=== PATIENT | male | born 1955 | race Caucasian/White ===

== ENCOUNTER → 2016-02-27 | Outpatient (CLI) | payer OTHER ==
[~2016-02-27] VITALS: Ht 167.6 cm; Wt 95.3 kg
[~2016-02-27] MED LIST: ASPI1TAB PO; CALC500T49 PO; CLAR5TAB PO; CLOB05OI EXT; CO Q1CAP PO; FISH5CAP PO; FLUT1SPR2; GLUC1CAP10 PO; IRBE300T10 PO; PANT40TA2 PO; PROPOFOL 200 MG/20 ML VIAL As Ordered ONE; SAW1CAP2 PO; SING10TA32 PO; VITA1TAB23 PO; glucosamine OR
[2016-02-27] MEDS: NS 1,000 ML IV SCH ×2 (09:15→09:20)
--- NOTE | 2016-02-27 10:31 | ROOR ---
Patient Name: Markie Fink Procedure Date: 02/27/2016 10:06 AM Date of : 1955 Age: 61 Room: [facility] Gender: Male Note Status: Finalized Procedure: Colonoscopy to Cecum Indications: High risk colon cancer surveillance: Personal history of colonic polyps Providers: Max Walter MD Referring MD: Michael Lugo NP Requesting Provider: Medicines: Monitored Anesthesia Care Complications: No immediate complications. Procedure: Pre-Anesthesia Assessment: - The heart rate, respiratory rate, oxygen saturations, blood pressure, adequacy of pulmonary ventilation, and response to care were monitored throughout the procedure. The Colonoscope was introduced through the anus and advanced to the cecum, identified by appendiceal orifice and ileocecal valve. The colonoscopy was performed without difficulty. The patient tolerated the procedure well. The quality of the bowel preparation was good. Findings: The perianal and digital rectal examinations were normal. Non-bleeding internal hemorrhoids were found during retroflexion. The hemorrhoids were small and Grade I (internal hemorrhoids that do not prolapse). The exam was otherwise without abnormality on direct and retroflexion views. Impression: - Non-bleeding internal hemorrhoids. - The examination was otherwise normal on direct and retroflexion views. - No specimens collected. - The exam was otherwise normal to the cecum. Recommendation: - Patient has a contact number available for emergencies. The signs and symptoms of potential delayed complications were discussed with the patient. Return to normal activities tomorrow. Written discharge instructions were provided to the patient. - High fiber diet. - Discharge patient to home. - Continue present medications. - Repeat colonoscopy in 5 years for surveillance. - Return to referring physician. - The findings and recommendations were discussed with the patient's family. Max Walter MD Max Walter MD 02/27/2016 10:30:36 AM This report has been signed electronically. Number of Addenda: 0 Note Initiated On: 02/27/2016 10:06 AM Estimated Blood Loss: Estimated blood loss: none.
[2016-02-27 10:52] VITALS: BP 10/84
== END ==
LOC: M OPP 08:50
PROVIDERS: ATTEND Internal Medicine Gastroenterology
DX: Z12.11 Encounter for screening for malignant neoplasm of colon (principal); Z86.010 Personal history of colon polyps; Z80.0 Family history of malignant neoplasm of digestive organs; K64.0 First degree hemorrhoids; K21.9 Gastro-esophageal reflux disease without esophagitis; I10 Essential (primary) hypertension; N18.9 Chronic kidney disease, unspecified; Z79.82 Long term (current) use of aspirin; Z79.899 Other long term (current) drug therapy; J30.2 Other seasonal allergic rhinitis; J30.89 Other allergic rhinitis

== ENCOUNTER → 2016-05-25 | Outpatient (CLI) | payer OTHER ==
[~2016-05-25] MED LIST changes: -PROPOFOL 200 MG/20 ML VIAL As Ordered ONE
[2016-05-25 16:55] LABS: ALBUMIN 4.1 GM/DL (3.2-5.2); ALBUMIN/GLOBULIN RATIO 1.41 (1.00-1.93); ALKALINE PHOSPHATASE 74 U/L (45-117); ALT/SGPT 25 U/L (12-78); ANION GAP 1 MEQ/L (8-16); AST/SGOT 29 U/L (15-37); BILIRUBIN,TOTAL 0.9 MG/DL (0.2-1.0); BLOOD UREA NITROGEN 16 MG/DL (7-18); CALCIUM LEVEL 8.9 MG/DL (8.8-10.2); CARBON DIOXIDE LEVEL 34 MEQ/L (21-32); CHLORIDE LEVEL 103 MEQ/L (98-107); CHOLESTEROL LEVEL 174 MG/DL (<200); CREATININE FOR GFR 1.04 MG/DL (0.70-1.30); GLOMERULAR FILTRATION RATE > 60.0 (>49); GLUCOSE, FASTING 92 MG/DL (80-110); POTASSIUM SERUM 4.8 MEQ/L (3.5-5.1); SODIUM LEVEL 138 MEQ/L (136-145); TRIGLYCERIDES LEVEL 200 MG/DL (<150)
[2016-05-25 17:40] LABS: BASO % 0.8 % (0.0-1.0); EOS # 0.1 K/mm3 (0.0-0.50); EOS % 2.2 % (0.0-3.0); LARGE UNSTAINED CELL # 0.1 K/mm3 (0.0-0.4); LARGE UNSTAINED CELL % 1.6 % (0.0-4.0); LYMPH % 16.9 % (24.0-44.0); MEAN CORPUSCULAR HEMOGLOBIN 30.9 pg (27.0-33.0); MEAN CORPUSCULAR HGB CONC 34.1 g/dl (32.0-36.5); MEAN CORPUSCULAR VOLUME 90.3 fl (80.0-96.0); MONO # 0.4 K/mm3 (0.0-0.8); MONO % 6.4 % (0.0-5.0); NEUTROPHILS # 4.3 K/mm3 (1.8-7.7); NEUTROPHILS % 72.1 % (36.0-66.0); PLATELET COUNT, AUTOMATED 173 k/mm3 (150-450); RED CELL DISTRIBUTION WIDTH 13.5 % (11.5-14.5)
== END ==
LOC: M WUC 11:16
PROVIDERS: ATTEND Nurse Practitioner Family
DX: D45 Polycythemia vera (principal); E55.9 Vitamin D deficiency, unspecified

== ENCOUNTER → 2016-11-22 | Outpatient (CLI) | payer OTHER ==
[~2016-11-22] MED LIST changes: +CO Q100C PO; -CO Q1CAP PO
[2016-11-22 10:10] LABS: BASO % 0.5 % (0.0-1.0); EOS # 0.2 10^3/uL (0.0-0.50); EOS % 3.4 % (0.0-3.0); IMMATURE GRANULOCYTE % 0.5 % (0-0); LYMPH % 18.5 % (24.0-44.0); MEAN CORPUSCULAR HGB CONC 34.9 g/dl (32.0-36.5); MEAN CORPUSCULAR VOLUME 85.9 fl (80.0-96.0); MONO # 0.4 10^3/uL (0.0-0.8); MONO % 7.1 % (0.0-5.0); NEUTROPHILS # 3.9 10^3/uL (1.8-7.7); PLATELET COUNT, AUTOMATED 161 10^3/uL (150-450); RED CELL DISTRIBUTION WIDTH 13.2 % (11.5-14.5); WHITE BLOOD COUNT 5.5 10^3/uL (4.0-10.0)
[2016-11-22 10:25] LABS: ALBUMIN 3.9 GM/DL (3.2-5.2); ALBUMIN/GLOBULIN RATIO 1.39 (1.00-1.93); ALKALINE PHOSPHATASE 73 U/L (45-117); ALT/SGPT 26 U/L (12-78); ANION GAP 9 MEQ/L (8-16); AST/SGOT 21 U/L (15-37); BILIRUBIN,TOTAL 0.8 MG/DL (0.2-1.0); BLOOD UREA NITROGEN 22 MG/DL (7-18); CALCIUM LEVEL 8.3 MG/DL (8.8-10.2); CARBON DIOXIDE LEVEL 28 MEQ/L (21-32); CHLORIDE LEVEL 105 MEQ/L (98-107); CREATININE FOR GFR 0.93 MG/DL (0.70-1.30); GLOMERULAR FILTRATION RATE > 60.0 (>49); GLUCOSE, FASTING 95 MG/DL (80-110); POTASSIUM SERUM 4.2 MEQ/L (3.5-5.1); SODIUM LEVEL 142 MEQ/L (136-145); TOTAL PROTEIN 6.7 GM/DL (6.4-8.2)
[2016-11-23 14:15] LABS: PSA TOTAL 1.1 ng/mL (0.0-4.0)
== END ==
LOC: M WUC 08:29
PROVIDERS: ATTEND Nurse Practitioner Family
DX: D45 Polycythemia vera (principal); Z12.5 Encounter for screening for malignant neoplasm of prostate; E55.9 Vitamin D deficiency, unspecified; I10 Essential (primary) hypertension

== ENCOUNTER → 2017-05-24 | Outpatient (CLI) | payer OTHER ==
[2017-05-24 09:11] LABS: BASO % 0.4 % (0.0-1.0); EOS # 0.1 10^3/uL (0.0-0.50); EOS % 2.5 % (0.0-3.0); HEMATOCRIT 46.3 % (42.0-52.0); HEMOGLOBIN 16.3 g/dl (13.5-17.5); IMMATURE GRANULOCYTE % 0.5 % (0-3.0); LYMPH % 17.9 % (24.0-44.0); MEAN CORPUSCULAR HGB CONC 35.2 g/dl (32.0-36.5); MEAN CORPUSCULAR VOLUME 85.3 fl (80.0-96.0); MONO # 0.5 10^3/uL (0.0-0.8); MONO % 9.2 % (0.0-5.0); NEUTROPHILS # 3.9 10^3/uL (1.8-7.7); NEUTROPHILS % 69.5 % (36.0-66.0); PLATELET COUNT, AUTOMATED 155 10^3/uL (150-450); RED BLOOD COUNT 5.43 10^6/uL (4.30-6.10); RED CELL DISTRIBUTION WIDTH 12.8 % (11.5-14.5); WHITE BLOOD COUNT 5.6 10^3/uL (4.0-10.0)
[2017-05-24 09:36] LABS: ALBUMIN 3.8 GM/DL (3.2-5.2); ALBUMIN/GLOBULIN RATIO 1.27 (1.00-1.93); ALKALINE PHOSPHATASE 67 U/L (45-117); ALT/SGPT 23 U/L (12-78); ANION GAP 4 MEQ/L (8-16); AST/SGOT 29 U/L (7-37); BILIRUBIN,TOTAL 1.2 MG/DL (0.2-1.0); BLOOD UREA NITROGEN 18 MG/DL (7-18); CALCIUM LEVEL 8.5 MG/DL (8.8-10.2); CARBON DIOXIDE LEVEL 33 MEQ/L (21-32); CHLORIDE LEVEL 104 MEQ/L (98-107); CREATININE FOR GFR 1.06 MG/DL (0.70-1.30); GLOMERULAR FILTRATION RATE > 60.0 (>49); GLUCOSE, FASTING 92 MG/DL (70-100); POTASSIUM SERUM 4.8 MEQ/L (3.5-5.1); SODIUM LEVEL 141 MEQ/L (136-145); TOTAL PROTEIN 6.8 GM/DL (6.4-8.2)
[2017-05-24 10:06] LABS: TOTAL 25(OH) VITAMIN D 30.6 NG/ML (30.0-100.0)
== END ==
LOC: M WUC 08:25
DX: E55.9 Vitamin D deficiency, unspecified (principal); I10 Essential (primary) hypertension

== ENCOUNTER → 2017-11-26 | Outpatient (CLI) | payer OTHER ==
[2017-11-26 13:18] LABS: BASO % 0.5 % (0.0-1.0); EOS # 0.2 10^3/uL (0.0-0.50); EOS % 3.6 % (0.0-3.0); HEMATOCRIT 49.6 % (42.0-52.0); HEMOGLOBIN 17.1 g/dl (13.5-17.5); IMMATURE GRANULOCYTE % 0.7 % (0-3.0); LYMPH # 1.1 10^3/uL (1.5-4.5); LYMPH % 19.9 % (24.0-44.0); MEAN CORPUSCULAR HEMOGLOBIN 30.1 pg (27.0-33.0); MEAN CORPUSCULAR HGB CONC 34.5 g/dl (32.0-36.5); MEAN CORPUSCULAR VOLUME 87.3 fl (80.0-96.0); MONO # 0.4 10^3/uL (0.0-0.8); MONO % 7.7 % (0.0-5.0); NEUTROPHILS # 3.8 10^3/uL (1.8-7.7); NEUTROPHILS % 67.6 % (36.0-66.0); PLATELET COUNT, AUTOMATED 165 10^3/uL (150-450); RED BLOOD COUNT 5.68 10^6/uL (4.30-6.10); RED CELL DISTRIBUTION WIDTH 13.2 % (11.5-14.5); WHITE BLOOD COUNT 5.6 10^3/uL (4.0-10.0)
[2017-11-26 13:50] LABS: ALBUMIN 3.9 GM/DL (3.2-5.2); ALBUMIN/GLOBULIN RATIO 1.34 (1.00-1.93); ALKALINE PHOSPHATASE 70 U/L (45-117); ALT/SGPT 25 U/L (12-78); ANION GAP 7 MEQ/L (8-16); AST/SGOT 22 U/L (7-37); BLOOD UREA NITROGEN 18 MG/DL (7-18); CALCIUM LEVEL 8.8 MG/DL (8.8-10.2); CARBON DIOXIDE LEVEL 31 MEQ/L (21-32); CHLORIDE LEVEL 103 MEQ/L (98-107); CREATININE FOR GFR 1.09 MG/DL (0.70-1.30); GLOMERULAR FILTRATION RATE > 60.0 (>49); GLUCOSE, FASTING 78 MG/DL (70-100); POTASSIUM SERUM 5.2 MEQ/L (3.5-5.1); SODIUM LEVEL 141 MEQ/L (136-145); TOTAL PROTEIN 6.8 GM/DL (6.4-8.2)
[2017-11-29 00:24] LABS: PSA TOTAL 1.1 ng/mL (0.0-4.0)
== END ==
LOC: M WUC 08:38
DX: I10 Essential (primary) hypertension (principal); Z12.5 Encounter for screening for malignant neoplasm of prostate; E55.9 Vitamin D deficiency, unspecified; M54.2 Cervicalgia

== ENCOUNTER → 2018-03-12 | Outpatient (CLI) | payer OTHER ==
[~2018-03-12] MED LIST changes: -PANT40TA2 PO; +PANT40TA3 PO
--- NOTE | 2018-03-12 23:24 | REP ---
Clinical: Right lower extremity palpable mass. Technique: Real time patel scale and color evaluation using linear high frequency transducer. Findings: Directed ultrasound examination at the right groin overlying the palpable mass demonstrates an enlarged vascular solid mass measuring 3.5 x 2.4 x 4.2 cm and likely represents enlarged pathologic lymph node. No further abnormality identified. Impression: Mass lesion likely represents enlarged pathologic lymph node. Correlation and follow up is recommended and based on symptoms and history, biopsy may be warranted. Electronically Signed by Dusty Urias MD 03/12/2018 11:15 P
== END ==
LOC: M RAD 13:38
PROVIDERS: ATTEND Physician Assistant
DX: R19.09 Other intra-abdominal and pelvic swelling, mass and lump (principal); R22.40 Localized swelling, mass and lump, unspecified lower limb

== ENCOUNTER → 2018-03-14 | Outpatient (CLI) | payer OTHER ==
[2018-03-14 10:04] LABS: BASO % 0.6 % (0.0-1.0); EOS # 0.1 10^3/uL (0.0-0.50); EOS % 1.9 % (0.0-3.0); HEMATOCRIT 53.7 % (42.0-52.0); HEMOGLOBIN 18.6 g/dl (13.5-17.5); LYMPH # 1.3 10^3/uL (1.5-4.5); LYMPH % 18.7 % (24.0-44.0); MEAN CORPUSCULAR HEMOGLOBIN 30.1 pg (27.0-33.0); MEAN CORPUSCULAR HGB CONC 34.6 g/dl (32.0-36.5); MONO # 0.5 10^3/uL (0.0-0.8); MONO % 7.2 % (0.0-5.0); NEUTROPHILS % 71.2 % (36.0-66.0); PLATELET COUNT, AUTOMATED 190 10^3/uL (150-450); RED BLOOD COUNT 6.17 10^6/uL (4.30-6.10)
[2018-03-14 10:30] LABS: ALBUMIN 4.3 GM/DL (3.2-5.2); ALT/SGPT 23 U/L (12-78); BILIRUBIN,TOTAL 1.4 MG/DL (0.2-1.0); BLOOD UREA NITROGEN 20 MG/DL (7-18); CALCIUM LEVEL 9.6 MG/DL (8.8-10.2); CARBON DIOXIDE LEVEL 32 MEQ/L (21-32); CHLORIDE LEVEL 101 MEQ/L (98-107); CREATININE FOR GFR 1.17 MG/DL (0.70-1.30); GLOMERULAR FILTRATION RATE > 60.0 (>49); GLUCOSE, FASTING 97 MG/DL (70-100); POTASSIUM SERUM 5.3 MEQ/L (3.5-5.1); SODIUM LEVEL 138 MEQ/L (136-145); TOTAL PROTEIN 7.3 GM/DL (6.4-8.2)
== END ==
LOC: M LAB 09:30
PROVIDERS: ATTEND Nurse Practitioner Family
DX: I10 Essential (primary) hypertension (principal)

== ENCOUNTER → 2018-03-26 | Outpatient (CLI) | payer OTHER ==
[~2018-03-26] MED LIST changes: +GASTROGRAFIN SOLUTION 30ML (Q9963) As Ordered ONE; +ISOVUE-370 76% 100ML VIAL (Q9967) As Ordered ONE
--- NOTE | 2018-03-26 21:05 | REP ---
Clinical: History of neoplasm. Technique: Axial contrast enhanced images from the lung bases to the pubic symphysis using oral (per protocol) and 100 ml Isovue 370 intravenous contrast material with delayed images of the abdomen as well as coronal and sagittal re-formations. Comparison: 02/16/2015. Findings: Lung bases demonstrate left lower lobe and right middle lobe fibroatelectatic change. Visualized portions of the heart and pericardium appear normal. Liver includes stable 3.2 cm left lobe cyst and few scattered subcentimeter cysts. Spleen is mildly prominent but without focal splenic lesion identified. Pancreas, gallbladder, bilateral adrenal glands and kidneys are normal. The enteric system is without obstruction or acute inflammatory process. Pelvis demonstrates normal bladder and moderately enlarged prostate gland measuring approximately 4.6 cm maximal diameter with parenchymal calcifications. No ascites. No adenopathy. No free air. Abdominal aorta without aneurysm or dissection. Musculoskeletal structures demonstrate degenerative changes without focal osseous abnormality. Impression: 1. Stable hepatic cysts. 2. Enlarged prostate gland. 3. No further acute abdominopelvic pathology appreciated. Electronically Signed by Dusty Urias MD 03/26/2018 08:56 P
== END ==
LOC: M RAD 14:10
PROVIDERS: ATTEND Internal Medicine Gastroenterology
DX: D48.7 Neoplasm of uncertain behavior of other specified sites (principal); K76.89 Other specified diseases of liver; N40.0 Benign prostatic hyperplasia without lower urinary tract symptoms
CPT/HCPCS: 74177; Q9963; Q9967

== ENCOUNTER → 2018-04-14 | Outpatient (CLI) | payer OTHER ==
[~2018-04-14] MED LIST changes: -GASTROGRAFIN SOLUTION 30ML (Q9963) As Ordered ONE; -ISOVUE-370 76% 100ML VIAL (Q9967) As Ordered ONE; +LIDOCAINE 1% MDV 20ML VIAL As Ordered ONE
--- NOTE | 2018-04-14 14:42 | REP ---
Ultrasound-guided core needle biopsy right groin mass. History: Enlarged right groin lymph node versus other mass. Comparison CT study March 26, 2018 and February 16, 2015 comparison sonography March 12, 2018. Procedure: The patient and his significant other were interviewed and informed consent was obtained. The patient was scanned with ultrasound preliminarily and the right groin was marked at the site of the oval-shaped mass. Its current dimensions are 41 x 38 x 25 mm, previously by sonography 42 x 35 x 24 mm. It is felt to be essentially unchanged over that short interval. The patient safety time-out was articulated and agreed upon. The area was prepped and draped in the usual fashion. A total of nine core specimens were retrieved using a 17/18 gauge Passpack coaxial needle biopsy device. These were split five in Cytolyt and four in the RPMI solution and transmitted to the lab for pathologic analysis. Biopsies were retrieved under direct sonographic visualization. No complication was noted. There is no evidence of hematoma on postprocedure scanning. Impression: Ultrasound guided needle biopsy procedure right groin mass. Electronically Signed by Uzair Snow MD 04/14/2018 02:44 P
== END ==
LOC: M RADPRO 09:38
PROVIDERS: ATTEND Surgery
DX: C85.15 Unspecified B-cell lymphoma, lymph nodes of inguinal region and lower limb (principal); Z79.82 Long term (current) use of aspirin; Z79.899 Other long term (current) drug therapy

== ENCOUNTER → 2018-04-25 | Outpatient (CLI) | payer OTHER ==
[~2018-04-25] MED LIST changes: +ATIV1TAB7 PO; +EQL50TAB4 PO; +FLUT05CR TOP; +ISOVUE-370 76% 100ML VIAL (Q9967) As Ordered ONE; -LIDOCAINE 1% MDV 20ML VIAL As Ordered ONE; +MAGN400C2 PO; +MULTCAP PO
--- NOTE | 2018-04-25 16:31 | REP ---
Soft-tissue neck CT study with IV contrast: History: Diffuse large B-cell lymphoma. Staging. No comparison study. CT contrast dose: 75 ml of intravenous Isovue 370. CT findings: Visualized paranasal sinuses are clear. No intracranial abnormality is seen. No intraorbital abnormality is noted. Parotid glands and submandibular glands are normal and symmetric. Thyroid lobes are homogeneous and symmetric. The lung apices are clear. No bony destructive lesion. There is no visible neck mass or adenopathy. There are a few tiny cervical lymph nodes. No vascular abnormality is observed. Glottic and subglottic airway is unremarkable. Normal epiglottis is seen. No tonsillar or peritonsillar lesion is appreciated. Floor of mouth structures appear unremarkable and symmetric. Impression: No neck mass or adenopathy seen. Electronically Signed by Uzair Snow MD 04/25/2018 06:55 P
--- NOTE | 2018-04-25 18:03 | REP ---
CT chest with IV contrast: History: Diffuse large B-cell lymphoma. Evaluate for staging. No comparison chest CT. Comparison chest x-ray is from January 06, 2015. CT contrast dose: 75 ml of intravenous Isovue 370. CT findings: There is mild adenopathy in the left axilla. The largest lymph node here measures 2.5 x 2.0 x 1.9 cm. No evidence of hilar or mediastinal mass or adenopathy is observed. There is left anterior descending coronary artery vascular calcification. No other vascular abnormality is observed. No pleural or pericardial effusion is seen. No adrenal lesion is observed. There are hepatic cysts. Right hemidiaphragm is somewhat elevated. There are degenerative disc changes in multiple levels of the thoracic spine. No bony destructive lesion is appreciated. There are old healed rib fractures on the left. Impression: There is one enlarged left axillary lymph node and two or three other normal-sized left axillary lymph nodes consistent with mild adenopathy. Old healed rib fractures. Otherwise no acute disease. Electronically Signed by Uzair Snow MD 04/25/2018 07:05 P
== END ==
LOC: M RAD 14:21
PROVIDERS: ATTEND Internal Medicine Medical Oncology
DX: C83.30 Diffuse large B-cell lymphoma, unspecified site (principal)
CPT/HCPCS: 70491; 71260; Q9967

== ENCOUNTER 2018-07-16 15:43 | Inpatient (IN) | payer OTHER ==
[~2018-07-16] VITALS: Ht 167.6 cm; Wt 97.5 kg
[~2018-07-16 15:43] MED LIST changes: -ASPI1TAB PO; +ASPI81TA26 PO; -CLOB05OI EXT; +CLOB05OI TOP; -EQL50TAB4 PO; -ISOVUE-370 76% 100ML VIAL (Q9967) As Ordered ONE; +ZINC1TAB2 PO
[2018-07-16] MEDS ORDERED: VALT500T PO (16:04)
[2018-07-16] MEDS ORDERED: ONDA4TAB6 PO (16:04)
[2018-07-16] MEDS ORDERED: PROC5TA PO (16:04)
[2018-07-16] MEDS ORDERED: PANT40TA3 PO (16:04)
[2018-07-16] MEDS ORDERED: CALC-132 PO (16:04)
[2018-07-16] MEDS ORDERED: CETI10CA2 PO (16:04)
[2018-07-16] MEDS ORDERED: CVS1CAP2 PO (16:04)
[2018-07-16] MEDS ORDERED: NS 1,000 ML IV ONE (17:00)
[2018-07-16] MEDS ORDERED: ACETAMINOPHEN TAB 650MG DOSE (2X325MG) PO ONE (17:15)
[2018-07-16 17:30] LABS: BASO % 2.3 % (0.0-1.0); EOS % 4.5 % (0.0-3.0); HEMATOCRIT 34.9 % (42.0-52.0); HEMOGLOBIN 12.3 g/dl (13.5-17.5); LYMPH % 29.5 % (24.0-44.0); MEAN CORPUSCULAR HEMOGLOBIN 31.1 pg (27.0-33.0); MEAN CORPUSCULAR HGB CONC 35.2 g/dl (32.0-36.5); MEAN CORPUSCULAR VOLUME 88.1 fl (80.0-96.0); MONO # 0.2 10^3/uL (0.0-0.8); MONO % 36.4 % (0.0-5.0); PLATELET COUNT, AUTOMATED 111 10^3/uL (150-450); RED BLOOD COUNT 3.96 10^6/uL (4.30-6.10)
[2018-07-16 17:34] LABS: LYMPH # 0.1 10^3/uL (1.5-4.5); NEUTROPHILS # 0.1 10^3/uL (1.8-7.7); WHITE BLOOD COUNT 0.4 10^3/uL (4.0-10.0)
--- NOTE | 2018-07-16 17:45 | REP ---
Clinical: Cough. Comparison: 01/06/2015 Findings: Mediastinum and cardiac silhouette are normal. Subtle left lower lobe infiltrate is appreciated. No effusion. No pneumothorax. Skeletal structures intact. Impression: Subtle left lower lobe infiltrate. Electronically Signed by Dusty Urias MD 07/16/2018 05:36 P
[2018-07-16 17:59] LABS: ALBUMIN 3.1 GM/DL (3.2-5.2); ALT/SGPT 31 U/L (12-78); BILIRUBIN,DIRECT 0.5 MG/DL (0.0-0.2); BILIRUBIN,TOTAL 1.7 MG/DL (0.2-1.0); BLOOD UREA NITROGEN 16 MG/DL (7-18); CALCIUM LEVEL 7.7 MG/DL (8.8-10.2); CARBON DIOXIDE LEVEL 31 MEQ/L (21-32); CHLORIDE LEVEL 97 MEQ/L (98-107); CK-MB VALUE MASS < 1.0 NG/ML (<3.6); CPK CREATINE PHOSPHOKINASE 48 U/L (39-308); GLOMERULAR FILTRATION RATE > 60.0 (>49); GLUCOSE, FASTING 94 MG/DL (70-100); LIPASE 89 U/L (73-393); MB/CK RELATIVE INDEX 2.08 (< OR =4); POTASSIUM SERUM 4.5 MEQ/L (3.5-5.1); SODIUM LEVEL 135 MEQ/L (136-145); TROPONIN I < 0.02 NG/ML (< 0.10)
[2018-07-16] MEDS ORDERED: PIPERACILLIN/TAZOBACTAM SOD 3.375 GM in D5W MINI-BAG PLUS 50 ML IV ONE (19:00)
[2018-07-16] MEDS ORDERED: ONDA8TAB8 PO (19:02)
[2018-07-16] MEDS ORDERED: VANCOMYCIN HCL 1,000 MG, VIAL MATE ADAPTER 1 EACH in D5W 250 ML IV ONE (20:00)
[2018-07-16] MEDS ORDERED: CLOBETASOL PROP 0.05% OINT 30 GM TOP PRN (20:00)
[2018-07-16] MEDS ORDERED: ONDANSETRON 4 MG ORAL DISINTEGRATING TAB (Q0162 PER 1MG) PO PRN (20:00)
[2018-07-16] MEDS ORDERED: ENOXAPARIN 40 MG/0.4 ML SYRINGE (J1650) SC SCH (20:00)
[2018-07-16] MEDS ORDERED: ISOVUE-370 76% 100ML VIAL (Q9967) As Ordered ONE (20:51)
--- NOTE | 2018-07-16 21:10 | HPEPDOC ---
General Date of Admission 07/16/2018 Date of Service: July 16, 2018 Primary Care Physician: Michael Lugo [facility] Other Providers Sueding Machine Tender: Michael Corado MD - Medicine Oncology Chief Complaint The patient is a 63-year-old male admitted with a reason for visit of Breathing Diff, Urinary Retention. Source: Patient, Family, Old records Exam Limitations: No limitations Timing/Duration: Week(s), Getting worse Associated Symptoms: Chest Pain, Chills, Shortness of breath History of Present Illness Mr. Fink is a 63-year-old male who presents to [facility] Emergency Department with worsening shortness of breath. Patient states that he has a diagnosis of lymphoma and 7 weeks ago started chemotherapy, including R-CHOP therapy at the [facility] under the care of lithograph operator Dr. Corado. 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 He would find that he was unable to catch his breath. Prior to 5 weeks ago patient was able to complete all ADLs and actually would walk on a treadmill at an incline for 3 miles at 4 miles/hour. He is currently unable to do so. He does not wear oxygen or use assist devices. Associated with the shortness of breath with exertion patient describes an anterior left sided chest pain that is not reproducible with palpation. The chest pain does not radiate. The pain does subside when the shortness of breath subsides. He is not coughing, there is no sputum producti on, and he is not vomiting. He did experience an coughing fit following the administration of R-CHOP on 07/01/2018. He thought it was most likely bronchitis and he self-treated with Mucinex, Delsum, and Flonase. That cough has since resolved. Patient's most recent R-CHOP therapy was on 07/08/2018 and he received Neulasta on 07/09/2018. His WBC on 07/08/2018 was 9.9. Patient has also incidentally noticed decreasing urination over the last several days. He states that his oral intake has been appropriate and has been advised to drink plenty of water with R-CHOP therapy which he has been doing. He also notes that he will urinate frequently (every hour on the hour) following Prednisone therapy. He has lower pelvic pain, urinary urgency, dysuria, or hematuria. There is no low back pain or radiating pain into his groin. When he addressed his urinary concerns with his medical oncology team they suggested he address his concerns with his primary care provider. Patient notes that he does feel weak in his legs and feels like he is in a "fog." He does not have lateralizing weakness, numbness, tingling, allergy symptoms, night sweats, fever. He does admits to diffuse abdominal discomfort, constipation due to chemotherapy, cutaneous folliiculitis related to his cancer (per patient), nasal congestion for which he takes Zyrtec. Hospitalist service was consulted and patient was admitted for further medical management. Home Medications Scheduled Aspirin (Aspirin EC) 81 Mg Tab, 81 MG PO DAILY, (Reported) Calcium Carb/Magnesium Oxid/D3 (Calcium Magnesium + D Tablet) 1 Each Tablet, 1 TAB PO DAILY, (Reported) Cetirizine HCl (ZyrTEC) 10 Mg Capsule, 10 MG PO DAILY, (Reported) Irbesartan (Irbesartan) 300 Mg Tab, 300 MG PO DAILY, (Reported) Lactobacillus Combo No.10 (Probiotic) 1 Each Capsule, 1 TAB PO DAILY, (Reported) Pantoprazole Sodium (Pantoprazole Sodium) 40 Mg Tablet.dr, 40 MG PO DAILY, (Reported) Valacyclovir HCl (Valtrex) 500 Mg Tablet, 1,000 MG PO DAILY, (Reported) Scheduled PRN Clobetasol Propionate (Clobetasol Propionate) 0.05 % Oin, 1 APLCT TOP DAILY PRN for ECZEMA, (Reported) Ondansetron (Ondansetron Odt) 8 Mg Tab.rapdis, 8 MG PO Q12H PRN for NAUSEA, (Reported) Prochlorperazine (Prochlorperazine Maleate) 5 Mg Tablet, 5 MG PO QID PRN for NAUSEA, (Reported) PATIENT STATES HE USUALLY ONLY TAKES THIS X 5 DAYS AFTER CHEMO Allergies Coded Allergies: POLLEN (Unverified Allergy, Intermediate, 02/23/16) mold (Verified Allergy, Unknown, 05/20/18) Past Medical History Medical History 1. 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 Allergies 3. HTN 4. Nausea 5. GERD 6. HSV 7. Eczema Surgical History 1. Left shoulder calcific tendonitis repair 2. Colonoscopy 3. EGD Family History Father: , 87, Parkinson's disease Mother: , 75, C. diff Siblings - Sister: x2, alive, 64 & 61 - Brother: x1, alive, 57 Social History * Smoker: Denies Alcohol: rarely Drugs: anuja Lives independently with Kerrie. They have resided together for 23 years. They do not have children together. There are no pets in the home. 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 He does not smoke. He rarely consumes EtOH. His l ast ETOH beverage was in February 2018. He does not use illicit drugs. A-FIB/CHADSVASC A-FIB History Current/History of A-Fib/PAF?: No Review of Systems Constitutional: Reports: Chills, Weakness (B/L LE); Denies: Fever, Malaise, Night Sweats Eyes: Denies: Pain, Vision change, Conjunctivae inflammation, Eyelid inflammation ENT: Denies: Head Aches, Dysphagia, Sinus Congestion, Post Nasal Drip, Sore Throat, Epistaxis Skin: Reports: Rash (folliculitis on chest); Denies: Lesions, Jaundice, Bruising Pulmonary: Reports: Dyspnea (with exertion); Denies: Cough, Pleuritic Chest Pain Cardiovascular: Reports: Chest Pain (anterior, left sided, without radiation); Denies: Palpitations, Orthopnea, Paroxysmal Noc. Dyspnea, Edema, Lt Headedness Gastrointestinal: Reports: Abdominal Pain (diffuse, discomfort), Constipation (associated with chemotherapy); Denies: Nausea, Vomiting, Diarrhea, Melena, Hematochezia Genitourinary: Reports: Other Symptoms (decreased urination); Denies: Dysuria, Frequency, Incontinence, Hematuria Hematologic: Denies: Bruising, Bleeding Excessively Musculoskeletal: Denies: Neck Pain, Back Pain, Joint Pain, Muscle Pain Neurological: Reports: Weakness (B/L LE); Denies: Numbness Physical Examination General Exam: Positive: Alert, Cooperative, No Acute Distress Eye Exam: Positive: PERRLA, Conjunctiva & lids normal, EOMI; Negative: Sclera icteric ENT Exam: Positive: Atraumatic, Mucous membr. moist/pink, Pharynx Normal, Tongue Midline, Nares Patent; Negative: Pharyngeal Edema Neck Exam: Positive: Supple, +2 carotid pulse wo bruit; Negative: JVD, thyromegaly, Lymphadenopathy Chest Exam: Positive: Normal air movement, Rales (LLL); Negative: Rhonchi, Wheezing, Diminished Heart Exam: Positive: Rate Normal, Regular Rhythm, Normal S1, Normal S2; Negative: Gallops, Murmurs, Rubs Telemetry: Positive: Sinus Abdomen Exam: Positive: Normal bowel sounds, Soft; Negative: Tenderness, Hepatospenomegaly, Mass, Hernia Extremity Exam: Positive: Normal pulses; Negative: Clubbing, Cyanosis, Edema, Tenderness, Swelling Skin Exam: Negative: Rash, Lesion Neuro Exam: Positive: Normal Speech, Cranial Nerves 3-12 NL Psych Exam: Positive: Oriented x 3 Other physical findings 1. Chest x-ray, 1 view - Subtle left lower lobe infiltrate. Vital Signs Vital Signs Date Time Temp Pulse Resp B/P (MAP) Pulse Ox O2 Delivery O2 Flow Rate FiO2 07/16/18 19:26 83 20 103/59 (74) 95 Room Air 07/16/18 15:44 97.1 Height (in): 66 Weight (kg): 90.91 BMI (kg): 32.3 Laboratory Data Labs 24H Laboratory Tests 2 07/16/18 17:14: Immature Granulocyte % (Auto) 2.3, White Blood Count 0.4*L, Red Blood Count 3.96L, Hemoglobin 12.3L, Hematocrit 34.9L, Mean Corpuscular Volume 88.1, Mean Corpuscular Hemoglobin 31.1, Mean Corpuscular Hemoglobin Concent 35.2, Red Cell Distribution Width 15.0H, Platelet Count 111L, Neutrophils (%) (Auto) 25.0L, Lymphocytes (%) (Auto) 29.5, Monocytes (%) (Auto) 36.4H, Eosinophils (%) (Auto) 4.5H, Basophils (%) (Auto) 2.3H, Neutrophils # (Auto) 0.1L, Lymphocytes # (Auto) 0.1L, Monocytes # (Auto) 0.2, Eosinophils # (Auto) 0.0, Basophils # (Auto) 0.0, Nucleated Red Blood Cells % (auto) 0.0, Urine Color YELLOW, Urine Appearance CLEAR, Urine pH 5.0, Urine Specific [place] 1.012, Urine Protein NEGATIVE, Urine Glucose (UA) NEGATIVE, Urine Ketones NEGATIVE, Urine Blood NEGATIVE, Urine Nitrite NEGATIVE, Urine Bilirubin NEGATIVE, Urine Urobilinogen 4.0H, Urine Leukocyte Esterase NEGATIVE, Urine WBC (Auto) 1, Urine RBC (Auto) 2, Urine Hyaline Casts (Auto) 0, Urine Bacteria (Auto) NEGATIVE, Urine Squamous Epithelial Cells 0, Urine Sperm (Auto) , Anion Gap 7L, Glomerular Filtration Rate > 60.0, Calcium Level 7.7L, Aspartate Amino Transf (AST/SGOT) 24, Alanine Aminotransferase (ALT/SGPT) 31, Alkaline Phosphatase 93, Total Bilirubin 1.7H, Direct Bilirubin 0.5H, Total Creatine Kinase 48, Creatine Kinase MB < 1.0, Creatine Kinase MB Relative Index 2.08, Troponin I < 0.02, Total Protein 6.0L, Albumin 3.1L, Albumin/Globulin Ratio 1.07, Lipase 89 07/16/18 17:20: POC Glucose (Misc Panel) 94, POC Sodium (Misc Panel) 133L, POC Potassium (Misc Panel) 4.3, POC Chloride (Misc Panel) 92L, POC Total CO2 (Misc Panel) 31.0H, POC Blood Urea Nitrogen (Misc Panel 15, POC Ionized Calcium (Misc Panel) 4.2L, POC Creatinine (Misc Panel) 1.0, POC Hematocrit (Misc Panel) 34.0L CBC/BMP Laboratory Tests 07/16/18 17:14 Red Blood Count 3.96 L, Mean Corpuscular Volume 88.1, Mean Corpuscular Hemoglobin 31.1, Mean Corpuscular Hemoglobin Concent 35.2, Red Cell Distribution Width 15.0 H, Neutrophils (%) (Auto) 25.0 L, Lymphocytes (%) (Auto) 29.5, Monocytes (%) (Auto) 36.4 H, Eosinophils (%) (Auto) 4.5 H, Basophils (%) (Auto) 2.3 H, Neutrophils # (Auto) 0.1 L, Lymphocytes # (Auto) 0.1 L, Monocytes # (Auto) 0.2, Eosinophils # (Auto) 0.0, Basophils # (Auto) 0.0 Plan / VTE VTE Prophylaxis Ordered?: Yes (Lovenox 1mg/kg SQ BID) Plan Plan 1. Shortness of breath with exertion - Possible underlying left lower lobe community acquired pneumonia. Patient is receiving R-CHOP therapy. Chest x-ray revealed subtle left lobe infiltrate. CTA chest did not describe definite con solidation; however, due to patient's underlying lymphoma diagnosis and current chemotherapy with ANC < 500 initiating triple antibiotic coverage with Vancomycin for MRSA coverage, Levofloxacin for respiratory coverage, and Zosyn for pseudomonal coverage. MRSA screen, sputum culture and gram stain, and respiratory panel ordered. Low grade temperature of 99.4 recorded. No other constitutional symptoms besides chills which can be attributed to chemotherapy. Oxygen saturation appropriate. Pro-BNP ordered. 2. Neutropenia - ANC 100. Received Neulasta on 07/09/2018. Verbally discussed with medical oncology fellow who recommended against further dosing with Neulasta. Neulasta does not necessarily raise the leukocyte count, but rather decreases the duration of neutropenia. Neutropenia is expected with chemotherapy. Temperature of 99.4 recorded. Triple antibiotic coverage started. Urinalysis is negative. Procalcitonin is pending. Received 1L NS bolus in the ED. 3. Pulmonary embolism - Noted on CTA chest in the terminal arteries. Started therapeutic Lovenox. 4. Atypical chest pain - Associated with shortness of breath. Initial cardiac marker was negative. Obtaining series of cardiac markers. EKG ordered. 5. HTN - Holding antihypertensive for the time being. 6. GERD - Continue Protonix. 7. Nausea - Continue Zofran and Compazine. 8. Eczema - Continue Clobetasol. 9. HSV prophylaxis - Continue Valacyclovir. Disposition Admit: Med/Surg Anticipated hospitalization: 2 nights Diet: Continue Current (2g sodium) Activity: Continue Current Diagnostics: Check Labs, Repeat Labs in AM, CT (chest angiogram) Anticipated Discharge: Home VICKY KC DO July 16, 2018 20:37
--- NOTE | 2018-07-16 21:26 | REP ---
Clinical: Acute chest pain. Technique: Axial contrast enhanced images from the thoracic inlet to the upper abdomen using 100 ml Isovue 370 intravenous contrast material with coronal and sagittal re-formations. Findings: Satisfactory enhancement of the pulmonary vasculature is achieved, but evaluation is somewhat limited due to respiratory motion artifact. Small emboli in terminal arteries to the left lower lobe cannot be excluded along with adjacent elements of atelectasis. No effusion. No pneumothorax. Mediastinum demonstrates normal thoracic aorta without aneurysm or dissection. No adenopathy. Heart and pericardium are within normal limits. No pericardial effusion. Musculoskeletal structures are intact. Impression: Small pulmonary emboli to the terminal arteries in the left lower lobe cannot be excluded with adjacent atelectasis. Electronically Signed by Dusty Urias MD 07/16/2018 09:18 P
--- NOTE | 2018-07-16 21:35 | REP ---
Clinical: Acute renal insufficiency decreased output. Technique: Real time patel scale ultrasound examination is done array transducer. Findings: Bilateral kidneys are normal in contour, size, echogenicity, and reniform shape without hydronephrosis, nephrolithiasis or cystic or renal mass lesion. No perinephric fluid collection. Right kidney measures 11.1 x 4.9 x 4.9 cm. Left kidney measures 11.2 x 4.8 x 6.0 cm. The bladder is normal in appearance and currently measures 9.2 x 8.7 x 6.0 cm (248 ml). Impression: Normal renal ultrasound Electronically Signed by Dusty Urias MD 07/16/2018 09:27 P
[2018-07-16 21:42] LABS: NT-PRO BNP 47 PG/ML (<125)
[2018-07-16] MEDS ORDERED: ENOXAPARIN 60 MG/0.6 ML SYR (J1650) SC ONE (22:00)
[2018-07-16] MEDS ORDERED: LevoFLOXacin IV 750 MG in APPROPRIATE DILUENT 1 EA IV SCH (23:00)
[2018-07-16 23:05] VITALS: BP 125/69
[2018-07-16] MEDS: LevoFLOXacin IV 750 MG in APPROPRIATE DILUENT 1 EA IV SCH (23:46)
[2018-07-17] MEDS: PROCHLORPERAZINE 5 MG TAB (S0183) PO PRN ×2 (00:01→18:20)
[2018-07-17 01:47] LABS: CK-MB VALUE MASS < 1.0 NG/ML (<3.6); CPK CREATINE PHOSPHOKINASE 97 U/L (39-308); MB/CK RELATIVE INDEX 1.03 (< OR =4); TROPONIN I < 0.02 NG/ML (< 0.10)
[2018-07-17] MEDS: PIPERACILLIN/TAZOBACTAM SOD 4.5 GM in D5W MINI-BAG PLUS 50 ML IV SCH ×4 (01:52→20:21)
--- NOTE | 2018-07-17 05:01 | PHACANCOPD ---
PHARMACY VANCOMYCIN DOSING Pt Demographics Demographics Patient Age:63 , Weight:97.500 , Gender: male Adjusted Body Weight Date: 07/17/18, Adjusted Body Weight: [74.6] Kg Vancomycin Vancomycin indication: CAP Vancomycin Target Ranges: 15-20 mcg/ml Vancomycin Load Y/N: No Load Dose Date Time Vancomycin Load Dose: Date: Time: Vancomycin Dose Date: 07/17/18. Current Vancomycin Dose: [1 GM Q12H] Intermittent Dosing?: No Labs Labs Laboratory Tests 07/16/18 17:14 Red Blood Count 3.96 L, Mean Corpuscular Volume 88.1, Mean Corpuscular Hem oglobin 31.1, Mean Corpuscular Hemoglobin Concent 35.2, Red Cell Distribution Width 15.0 H, Neutrophils (%) (Auto) 25.0 L, Lymphocytes (%) (Auto) 29.5, Monocytes (%) (Auto) 36.4 H, Eosinophils (%) (Auto) 4.5 H, Basophils (%) (Auto) 2.3 H, Neutrophils # (Auto) 0.1 L, Lymphocytes # (Auto) 0.1 L, Monocytes # (Auto) 0.2, Eosinophils # (Auto) 0.0, Basophils # (Auto) 0.0 Micro Microbiology 07/17/18 Gram Stain, Received Pending 07/17/18 Sputum Culture, Received Pending 07/17/18 Respiratory Virus Panel (PCR) (PREETI) - Final, Complete 07/17/18 MRSA Screen, Received Pending Creatinine Clearance Date:07/17/18. Creatinine Clearance: [79.8].CALCULATED Assessment and Plan Maintaining Current Dose?: Yes Reason for dose change: No Dose Change Pharmacist Note Pharmacist Note Date: 07/17/18. Pharmacist note:63 YOM,5'6",90.9KG,scr=1.0,crcl=79.8,ALLERGIES: MOLD,POLLEN.RECEIVING LEVOFLOXACIN 750MG q24h,PIP/TAZO 4.5 gm IV q6H,AND Vancomycin per pharmacy dosing 1 gm administered in ED@2200.Will begin a regimen of 1 gram IV [id number] @0600.First trough to be drawn 07/18@0500-will continue to follow [facility] July 17, 2018 05:00
[2018-07-17 06:00] VITALS: BP 112/65
[2018-07-17] MEDS: VANCOMYCIN HCL 1,000 MG, VIAL MATE ADAPTER 1 EACH in D5W 250 ML IV SCH ×2 (06:08→18:20)
[2018-07-17 06:24] LABS: HEMOGLOBIN 10.3 g/dl (13.5-17.5); MEAN CORPUSCULAR HEMOGLOBIN 31.1 pg (27.0-33.0); MEAN CORPUSCULAR HGB CONC 35.5 g/dl (32.0-36.5); MEAN CORPUSCULAR VOLUME 87.6 fl (80.0-96.0); RED BLOOD COUNT 3.31 10^6/uL (4.30-6.10)
[2018-07-17 06:46] LABS: ALBUMIN 2.8 GM/DL (3.2-5.2); ALT/SGPT 27 U/L (12-78); BILIRUBIN,TOTAL 1.2 MG/DL (0.2-1.0); BLOOD UREA NITROGEN 13 MG/DL (7-18); CALCIUM LEVEL 8.1 MG/DL (8.8-10.2); CARBON DIOXIDE LEVEL 30 MEQ/L (21-32); CHLORIDE LEVEL 101 MEQ/L (98-107); CREATININE FOR GFR 0.99 MG/DL (0.70-1.30); GLOMERULAR FILTRATION RATE > 60.0 (>49); GLUCOSE, FASTING 94 MG/DL (70-100); POTASSIUM SERUM 4.3 MEQ/L (3.5-5.1); SODIUM LEVEL 137 MEQ/L (136-145)
[2018-07-17 06:49] LABS: CK-MB VALUE MASS < 1.0 NG/ML (<3.6); CPK CREATINE PHOSPHOKINASE 45 U/L (39-308); MB/CK RELATIVE INDEX 2.22 (< OR =4); TROPONIN I < 0.02 NG/ML (< 0.10)
[2018-07-17 07:02] LABS: PLATELET COUNT, AUTOMATED 88 10^3/uL (150-450); WHITE BLOOD COUNT 0.7 10^3/uL (4.0-10.0)
[2018-07-17] MEDS ORDERED: IRBESARTAN 150 MG TAB PO SCH (09:00)
[2018-07-17] MEDS: PANTOPRAZOLE 40MG TAB (PROTONIX) PO SCH (09:32)
[2018-07-17] MEDS: valACYclovir HCL 500 MG TAB PO SCH (09:32)
[2018-07-17] MEDS: ENOXAPARIN 100MG/1ML SYRINGE (J1650) SC SCH ×2 (09:32→21:58)
[2018-07-17] MEDS: ASPIRIN 81 MG ENTERIC TAB PO SCH (09:32)
--- NOTE | 2018-07-17 11:17 | IPNPDOC ---
Subjective Date Seen The patient was seen on 07/17/18. Subjective Chief Complaint/HPI Patient offers no new complaints. Wishes to go home soon General: Denies: ROS Unobtainable, Chills, Night Sweats, Fatigue, Malaise, Normal Appetite, Other Symptoms Constitutional: Denies: Chills, Fever, Malaise, Night Sweats, Weakness, Fatigue, Weight Loss, Lethargy, Other Eyes: Denies: Pain, Vision change, Conjunctivae inflammation, Eyelid inflammation, Redness, Other ENT: Denies: Head Aches, Ear Pain, Dysphagia, Sinus Congestion, Post Nasal Drip, Sore Throat, Epistaxis, Other Symptoms Skin: Denies: Rash, Lesions, Jaundice, Bruising, Itching, Dry, Breakdown, Nail Changes, Other Pulmonary: Denies: Dyspnea, Cough, Pleuritic Chest Pain, Other Symptoms Cardiovascular: Denies: Chest Pain, Palpitations, Orthopnea, Paroxysmal Noc. Dyspnea, Edema, Lt Headedness, Other Symptoms Gastrointestinal: Denies: Nausea, Vomiting, Abdominal Pain, Diarrhea, Constipation, Melena, Hematochezia, Other Symptoms Genitourinary: Denies: Dysuria, Frequency, Incontinence, Hematuria, Retention, Other Symptoms Hematologic: Denies: Bruising, Bleeding Excessively, Petecchia, Purpura, Enlarged Lymph Nodes, Other Hematologic Endocrine: Denies: Polydipsia, Polyphagia, Polyuria, Heat Intolerance, Cold Intolerance, Other Endocrine Sx Musculoskeletal: Denies: Neck Pain, Back Pain, Shoulder Pain, Arm Pain, Hand Pain, Leg Pain, Foot Pain, Joint Pain, Muscle Pain, Spasms, Other Symptoms Neurological: Denies: Weakness, Numbness, Incoordination, Change in speech, Confusion, Seizures, Other Symptoms Psych: Denies: Mood Normal, Anxiety, Depression, Memory Issues, Thoughts of Self Harm, Anger, Thoughts of Harming Other, Other Psych Objective Physical Examination General Exam: Positive: Alert, Cooperative, No Acute Distress Eye Exam: Positive: PERRLA, Conjunctiva & lids normal, EOMI; Negative: Sclera icteric ENT Exam: Positive: Atraumatic, Mucous membr. moist/pink, Pharynx Normal, Tongue Midline, Nares Patent; Negative: Pharyngeal Edema Neck Exam: Positive: Supple, +2 carotid pulse wo bruit; Negative: JVD, thyromegaly, Lymphadenopathy Chest Exam: Positive: Normal air movement, Rales (LLL); Negative: Rhonchi, Wheezing, Diminished Heart Exam: Positive: Rate Normal, Regular Rhythm, Normal S1, Normal S2; Negative: Gallops, Murmurs, Rubs Telemetry: Positive: Sinus Abdomen Exam: Positive: Normal bowel sounds, Soft; Negative: Tenderness, Hepatospenomegaly, Mass, Hernia Extremity Exam: Positive: Normal pulses; Negative: Clubbing, Cyanosis, Edema, Tenderness, Swelling Skin Exam: Negative: Rash, Lesion Neuro Exam: Positive: Normal Speech, Cranial Nerves 3-12 NL Psych Exam: Positive: Oriented x 3 Assessment /Plan Problems (1) Pneumonia Status: Acute Problem Text: Continue IV antibiotics as per orders DC Vanco once MRSA screen is negative pro Calcitonin will be ordered today Continue present meds M level has been ordered (2) Neutropenia Status: Acute Problem Text: Improving. WBC count Continue monitoring and repeat CBC in a.m. (3) Diffuse large B cell lymphoma Status: Chronic Problem Text: Resident spoke with oncology group at [facility] Made any changes in the management at this time (4) Pulmonary embolism Status: Acute Problem Text: Patient was started on Lovenox 1 mg/kg every 12 hours , He wishes to be on oral meds Coumadin is recommended in the oncology patients with PE Restart Coumadin 5 mg by mouth daily Can follow with PCP. Once INR is between 2 and 3 ,then DC Lovenox at that time The meantime, he will continue taking both areas as directed Plan/VTE VTE Prophylaxis Ordered?: Yes (Lovenox 1mg/kg SQ BID) Plan Diet: Continue Current (2g sodium) Activity: Continue Current Diagnostics: Check Labs, Repeat Labs in AM, CT (chest angiogram) Anticipated Discharge: Home VS[facility] Vital Signs/I&O Vital Signs Date Time Temp Pulse Resp B/P (MAP) Pulse Ox O2 Delivery O2 Flow Rate FiO2 07/17/18 06:00 98.1 71 18 112/65 (81) 94 07/16/18 22:17 Room Air I&O- Last 24 Hours up to 6 AM 07/17/18 06:00 Intake Total 1850 ml Output Total 550 ml Balance 1300 ml Laboratory Data 24H LABS Laboratory Tests 2 07/16/18 17:14: Immature Granulocyte % (Auto) 2.3, White Blood Count 0.4*L, Red Blood Count 3.96L, Hemoglobin 12.3L, Hematocrit 34.9L, Mean Corpuscular Volume 88.1, Mean Corpuscular Hemoglobin 31.1, Mean Corpuscular Hemoglobin Concent 35.2, Red Cell Distribution Width 15.0H, Platelet Count 111L, Neutrophils (%) (Auto) 25.0L, Lymphocytes (%) (Auto) 29.5, Monocytes (%) (Auto) 36.4H, Eosinophils (%) (Auto) 4.5H, Basophils (%) (Auto) 2.3H, Neutrophils # (Auto) 0.1L, Lymphocytes # (Auto) 0.1L, Monocytes # (Auto) 0.2, Eosinophils # (Auto) 0.0, Basophils # (Auto) 0.0, Nucleated Red Blood Cells % (auto) 0.0, Urine Color YELLOW, Urine Appearance CLEAR, Urine pH 5.0, Urine Specific [place] 1.012, Urine Protein NEGATIVE, Urine Glucose (UA) NEGATIVE, Urine Ketones NEGATIVE, Urine Blood NEGATIVE, Urine Nitrite NEGATIVE, Urine Bilirubin NEGATIVE, Urine Urobilinogen 4.0H, Urine Leukocyte Esterase NEGATIVE, Urine WBC (Auto) 1, Urine RBC (Auto) 2, Urine Hyaline Casts (Auto) 0, Urine Bacteria (Auto) NEGATIVE, Urine Squamous Epithelial Cells 0, Urine Sperm (Auto) , Anion Gap 7L, Glomerular Filtration Rate > 60.0, Calcium Level 7.7L, Aspartate Amino Transf (AST/SGOT) 24, Alanine Aminotransferase (ALT/SGPT) 31, Alkaline Phosphatase 93, Total Bilirubin 1.7H, Direct Bilirubin 0.5H, Total Creatine Kinase 48, Creatine Kinase MB < 1.0, Creatine Kinase MB Relative Index 2.08, Troponin I < 0.02, ZF-Oym-B-Type Natriuretic Peptide 47, Total Protein 6.0L, Albumin 3.1L, Albumin/Globulin Ratio 1.07, Lipase 89 07/16/18 17:20: POC Glucose (Misc Panel) 94, POC Sodium (Misc Panel) 133L, POC Potassium (Misc Panel) 4.3, POC Chloride (Misc Panel) 92L, POC Total CO2 (Misc Panel) 31.0H, POC Blood Urea Nitrogen (Misc Panel 15, POC Ionized Calcium (Misc Panel) 4.2L, POC Creatinine (Misc Panel) 1.0, POC Hematocrit (Misc Panel) 34.0L 07/17/18 01:04: Total Creatine Kinase 97#, Creatine Kinase MB < 1.0, Creatine Kinase MB Relative Index 1.03, Troponin I < 0.02 07/17/18 01:55: 07/17/18 05:58: Nucleated Red Blood Cells % (auto) 0.0, Immature Platelet Fraction 3.1, Anion Gap 6L, Glomerular Filtration Rate > 60.0, Blood Urea Nitrogen 13, Creatinine 0.99, Sodium Level 137, Potassium Level 4.3, Chloride Level 101, Carbon Dioxide Level 30, Calcium Level 8.1L, Aspartate Amino Transf (AST/SGOT) 21, Alanine Aminotransferase (ALT/SGPT) 27, Alkaline Phosphatase 75, Total Bilirubin 1.2H, Total Protein 5.0L, Albumin 2.8L, Total Creatine Kinase 45, Creatine Kinase MB < 1.0, Creatine Kinase MB Relative Index 2.22, Troponin I < 0.02, Albumin/Globulin Ratio 1.27 CBC/BMP Laboratory Tests 07/16/18 17:14 Red Blood Count 3.96 L, Mean Corpuscular Volume 88.1, Mean Corpuscular Hemoglobin 31.1, Mean Corpuscular Hemoglobin Concent 35.2, Red Cell Distribution Width 15.0 H, Neutrophils (%) (Auto) 25.0 L, Lymphocytes (%) (Auto) 29.5, Monocytes (%) (Auto) 36.4 H, Eosinophils (%) (Auto) 4.5 H, Basophils (%) (Auto) 2.3 H, Neutrophils # (Auto) 0.1 L, Lymphocytes # (Auto) 0.1 L, Monocytes # (Auto) 0.2, Eosinophils # (Auto) 0.0, Basophils # (Auto) 0.0 07/17/18 05:58 Red Blood Count 3.31 L, Mean Corpuscular Volume 87.6, Mean Corpuscular Hemoglobin 31.1, Mean Corpuscular Hemoglobin Concent 35.5, Red Cell Distribution Width 15.1 H, Calcium Level 8.1 L, Aspartate Amino Transf (AST/SGOT) 21, Alanine Aminotransferase (ALT/SGPT) 27, Alkaline Phosphatase 75, Total Bilirubin 1.2 H, Total Protein 5.0 L, Albumin 2.8 L Microbiology Microbiology 07/17/18 Gram Stain, Received Pending 07/17/18 Sputum Culture, Received Pending 07/17/18 Respiratory Virus Panel (PCR) (PREETI) - Final, Complete 07/17/18 MRSA Screen, Received Pending SAMMIE CALVILLO MD July 17, 2018 11:17
[2018-07-17 12:12] LABS: INR 1.15; PROTHROMBIN TIME 14.9 SECONDS (12.1-14.4)
[2018-07-17 14:00] VITALS: BP 115/75
[2018-07-17] MEDS ORDERED: WARFARIN SOD 5 MG TAB PO SCH (17:00)
[2018-07-17] MEDS ORDERED: SIMETHICONE 80 MG CHEW TAB PO PRN (21:00)
[2018-07-17] MEDS: DOCUSATE SODIUM 100 MG CAP PO SCH (21:57)
[2018-07-17 22:00] VITALS: BP 114/72
[2018-07-17] MEDS: LevoFLOXacin IV 750 MG in APPROPRIATE DILUENT 1 EA IV SCH (22:01)
[2018-07-17] MEDS ORDERED: CETIRIZINE (ZyrTEC) 10 MG TAB PO ONE (22:30)
[2018-07-18] MEDS: PIPERACILLIN/TAZOBACTAM SOD 4.5 GM in D5W MINI-BAG PLUS 50 ML IV SCH ×2 (03:06→08:00)
[2018-07-18 06:00] VITALS: BP 117/71
[2018-07-18] MEDS ORDERED: VANCOMYCIN HCL 750 MG, VIAL MATE ADAPTER 1 EACH in D5W 250 ML IV SCH (06:00)
[2018-07-18 06:05] LABS: HEMOGLOBIN 10.3 g/dl (13.5-17.5); MEAN CORPUSCULAR HEMOGLOBIN 29.5 pg (27.0-33.0); MEAN CORPUSCULAR HGB CONC 34.3 g/dl (32.0-36.5); RED BLOOD COUNT 3.49 10^6/uL (4.30-6.10); WHITE BLOOD COUNT 3.3 10^3/uL (4.0-10.0)
[2018-07-18 06:07] LABS: PLATELET COUNT, AUTOMATED 99 10^3/uL (150-450)
[2018-07-18 06:23] LABS: ALBUMIN 2.9 GM/DL (3.2-5.2); ALT/SGPT 25 U/L (12-78); BILIRUBIN,TOTAL 1.1 MG/DL (0.2-1.0); BLOOD UREA NITROGEN 9 MG/DL (7-18); CALCIUM LEVEL 8.2 MG/DL (8.8-10.2); CARBON DIOXIDE LEVEL 28 MEQ/L (21-32); CHLORIDE LEVEL 104 MEQ/L (98-107); CREATININE FOR GFR 0.98 MG/DL (0.70-1.30); GLOMERULAR FILTRATION RATE > 60.0 (>49); GLUCOSE, FASTING 90 MG/DL (70-100); SODIUM LEVEL 137 MEQ/L (136-145); TOTAL PROTEIN 5.6 GM/DL (6.4-8.2); VANCOMYCIN LEVEL TROUGH 10.1 UG/ML (10.0-20.0)
--- NOTE | 2018-07-18 06:43 | PHACANCOPD ---
PHARMACY VANCOMYCIN DOSING Pt Demographics Demographics Patient Age:63 , Weight:97.500 , Gender: male Adjusted Body Weight Date: 07/17/18, Adjusted Body Weight: [74.6] Kg Vancomycin Vancomycin indication: CAP Vancomycin Target Ranges: 15-20 mcg/ml Vancomycin Load Y/N: No Load Dose Date Time Vancomycin Load Dose: Date: Time: Vancomycin Dose Date: 07/17/18. Current Vancomycin Dose: [1 GM Q12H] Intermittent Dosing?: No Labs Micro Microbiology 07/17/18 Gram Stain - Final, Resulted 07/17/18 Sputum Culture, Resulted Pending 07/17/18 Respiratory Virus Panel (PCR) (PREETI) - Final, Complete 07/17/18 MRSA Screen, Received Pending Creatinine Clearance Date:07/17/18. Creatinine Clearance: [79.8].CALCULATED Assessment and Plan Maintaining Current Dose?: No Reason for dose change: Trough too low Pharmacist Note Pharmacist Note Date: 07/18/18. Pharmacist note:Vancomycin trough drawn this morning@5:26 reported as 10.1(goal= 15-20)SCR=0.98.Will change Vancomycin regimen to 1250mg IV [id number] to begin@0600 today.-will continue to follow Date: 07/17/18. Pharmacist note:63 YOM,5'6",90.9KG,scr=1.0,crcl=79.8,ALLERGIES: MOLD,POLLEN.RECEIVING LEVOFLOXACIN 750MG q24h,PIP/TAZO 4.5 gm IV q6H,AND Vancomycin per pharmacy dosing 1 gm administered in ED@2200.Will begin a regimen of 1 gram IV [id number] @0600.First trough to be drawn 07/18@0500-will continue to follow [facility] July 18, 2018 06:43
[2018-07-18] MEDS ORDERED: VANCOMYCIN HCL 500 MG in D5W MINI-BAG PLUS 100 ML IV SCH (07:00)
[2018-07-18] MEDS ORDERED: CETIRIZINE (ZyrTEC) 10 MG TAB PO SCH (09:00)
[2018-07-18] MEDS: DOCUSATE SODIUM 100 MG CAP PO SCH (09:00)
[2018-07-18] MEDS: PANTOPRAZOLE 40MG TAB (PROTONIX) PO SCH (09:17)
[2018-07-18] MEDS: valACYclovir HCL 500 MG TAB PO SCH (09:17)
[2018-07-18] MEDS: ASPIRIN 81 MG ENTERIC TAB PO SCH (09:17)
[2018-07-18] MEDS: PROCHLORPERAZINE 5 MG TAB (S0183) PO PRN (09:17)
[2018-07-18] MEDS: ENOXAPARIN 100MG/1ML SYRINGE (J1650) SC SCH (09:19)
--- NOTE | 2018-07-18 11:18 | DS.PDOC ---
Discharge Summary General Date of Admission July 16, 2018 at 21:22 Date of Discharge 07/18/2018 Attending Physician: SAMMIE CALVILLO MD Discharge Summary PROCEDURES PERFORMED DURING STAY: None. ADMITTING DIAGNOSES: 1. Neutropenia, fever, questionable pneumonia. DISCHARGE DIAGNOSES: 1. Neutropenia. COMPLICATIONS/CHIEF COMPLAINT: Pneumonia. HISTORY OF PRESENT ILLNESS: Mr. Fink is a 63-year-old male who presents to [facility]'s Emergency Department with worsening shortness of breath. Patient states that he has a diagnosis of lymphoma and 7 weeks ago started chemotherapy, including R-CHOP therapy at the [facility] under the care of account manager relief Dr. Corado. 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 He would find that he was unable to catch his breath. Prior to 5 weeks ago patient was able to complete all ADLs and actually would walk on a treadmill at an incline for 3 miles at 4 miles/hour. He is currently unable to do so. He does not wear oxygen or use assist devices. Associated with the shortness of breath with exertion patient describes an anterior left sided chest pain that is not reproducible with palpation. The chest pain does not radiate. The pain does subside when the shortness of breath subsides. He is not coughing, there is no sputum production, and he is not vomiting. He did experience an coughing fit following the administration of R-CHOP on 07/01/2018. He thought it was most likely bronchitis and he self-treated with Mucinex, Delsum, and Flonase. That cough has since resolved. Patient's most recent R-CHOP therapy was on 07/08/2018 and he received Neulasta on 07/09/2018. His WBC on 07/08/2018 was 9.9. Patient has also incidentally noticed decreasing urination over the last several days. He states that his oral intake has been appropriate and has been advised to drink plenty of water with R-CHOP therapy which he has been doing. He also notes that he will urinate frequently (every hour on the hour) following Prednisone therapy. He has lower pelvic pain, urinary urgency, dysuria, or hematuria. There is no low back pain or radiating pain into his groin. When he addressed his urinary concerns with his medical oncology team they suggested he address his concerns with his primary care provider. Patient notes that he does feel weak in his legs and feels like he is in a "fog." He does not have lateralizing weakness, numbness, tingling, allergy symptoms, night sweats, fever. He does admits to diffuse abdominal discomfort, constipation due to chemotherapy, cutaneous folliiculitis related to his cancer (per patient), nasal congestion for which he takes Zyrtec.. HOSPITAL COURSE: [(1) Pneumonia Negative protein calcitonin, patient afebrile with no symptoms. Doubt there is evidence of DC all antibiotics MRSA screen negative (2) Neutropenia wBC count is improved to 3.3 And can be discharged home. Follow up with his oncologist as an outpatient (3) Diffuse large B cell lymphoma Follow-up with his oncology group at [place] For further intervention at this point (4) Pulmonary embolism Discussed with oncology. Patient should be on low Lovenox. Patient will be started on 90 mg of Lovenox subcutaneous every 12 hours With PCP and oncology group in one week DISCHARGE MEDICATIONS: Please see below. ALLERGIES: Please see below. PHYSICAL EXAMINATION ON DISCHARGE: VITAL SIGNS: Please see below. GENERAL: Normal HEENT: PERRLA NECK: Supple CARDIOVASCULAR EXAMINATION: S1, S2, regular RESPIRATORY EXAMINATION: Clear to A&P ABDOMINAL EXAMINATION: Benign EXTREMITIES: Oh clubbing, cyanosis, edema SKIN: Normal NEUROLOGICAL EXAMINATION: . No focal motor sensory deficit PSYCHIATRIC EXAMINATION: LABORATORY DATA: Please see below. IMAGING: Per EMR PROGNOSIS: ACTIVITY: As tolerated. DIET: As tolerated DISCHARGE PLAN: Follow with oncology group at [place] DISPOSITION: . Home DISCHARGE INSTRUCTIONS: 1. As above. ITEMS TO FOLLOWUP ON ON OUTPATIENT: 1. As above. DISCHARGE CONDITION: Stable. TIME SPENT ON DISCHARGE: 35 minutes. Vital Signs/I&Os Vital Signs Date Time Temp Pulse Resp B/P (MAP) Pulse Ox O2 Delivery O2 Flow Rate FiO2 07/18/18 06:00 97.8 71 18 117/71 (86) 95 07/16/18 22:17 Room Air I&O- Last 24 Hours up to 6 AM 07/18/18 06:00 Intake Total 2160 ml Output Total 3770 ml Balance -1610 ml Laboratory Data Labs 24H Laboratory Tests 2 07/17/18 11:45: Prothrombin Time 14.9H, Prothromb Time International Ratio 1.15 07/18/18 05:26: Nucleated Red Blood Cells % (auto) 1.5H, Anion Gap 5L, Glomerular Filtration Rate > 60.0, Blood Urea Nitrogen 9, Creatinine 0.98, Sodium Level 137, Potassium Level 4.0, Chloride Level 104, Carbon Dioxide Level 28, Calcium Level 8.2L, Aspartate Amino Transf (AST/SGOT) 15, Alanine Aminotransferase (ALT/SGPT) 25, Alkaline Phosphatase 77, Total Bilirubin 1.1H, Total Protein 5.6L, Albumin 2.9L, Albumin/Globulin Ratio 1.07, Vancomycin Level Trough 10.1 CBC/BMP Laboratory Tests 07/18/18 05:26 Red Blood Count 3.49 L, Mean Corpuscular Volume 86.0, Mean Corpuscular Hemoglobin 29.5, Mean Corpuscular Hemoglobin Concent 34.3, Red Cell Distribution Width 15.8 H, Calcium Level 8.2 L, Aspartate Amino Transf (AST/SGOT) 15, Alanine Aminotransferase (ALT/SGPT) 25, Alkaline Phosphatase 77, Total Bilirubin 1.1 H, Total Protein 5.6 L, Albumin 2.9 L Microbiology Microbiology 07/17/18 Gram Stain - Final, Resulted 07/17/18 Sputum Culture, Resulted Pending 07/17/18 Respiratory Virus Panel (PCR) (PREETI) - Final, Complete 07/17/18 MRSA Screen - Final, Complete Discharge Medications Scheduled Aspirin (Aspirin EC) 81 Mg Tab, 81 MG PO DAILY, (Reported) Calcium Carb/Magnesium Oxid/D3 (Calcium Magnesium + D Tablet) 1 Each Tablet, 1 TAB PO DAILY, (Reported) Cetirizine HCl (ZyrTEC) 10 Mg Capsule, 10 MG PO DAILY, (Reported) Enoxaparin Sodium (Lovenox) 100 Mg/1 Ml Syringe, 90 MG SC Q12H Irbesartan (Irbesartan) 300 Mg Tab, 300 MG PO DAILY, (Reported) Lactobacillus Combo No.10 (Probiotic) 1 Each Capsule, 1 TAB PO DAILY, (Reported) Pantoprazole Sodium (Pantoprazole Sodium) 40 Mg Tablet.dr, 40 MG PO DAILY, (Reported) Valacyclovir HCl (Valtrex) 500 Mg Tablet, 1,000 MG PO DAILY, (Reported) Scheduled PRN Clobetasol Propionate (Clobetasol Propionate) 0.05 % Oin, 1 APLCT TOP DAILY PRN for ECZEMA, (Reported) Ondansetron (Ondansetron Odt) 8 Mg Tab.rapdis, 8 MG PO Q12H PRN for NAUSEA, (Reported) Prochlorperazine (Prochlorperazine Maleate) 5 Mg Tablet, 5 MG PO QID PRN for NAUSEA, (Reported) PATIENT STATES HE USUALLY ONLY TAKES THIS X 5 DAYS AFTER CHEMO Allergies Coded Allergies: POLLEN (Unverified Allergy, Intermediate, 02/23/16) mold (Verified Allergy, Unknown, 05/20/18) SAMMIE CALVILLO MD July 18, 2018 11:18
[2018-07-18] MEDS ORDERED: LOVE0.8I SC (11:20)
[2018-07-18] MEDS ORDERED: LOVE1INJ SC (11:52)
[2018-07-19 14:09] LABS: BODY FLUID CULTURE Not Indicated (.); LEGIONELLA ANTIGEN URINE Negative (Negative); ORGANISM ID Not indicated. (.); SPECIMEN SOURCE Urine (.); URINE STREP PNEUMONIAE ANTIGEN Negative (Negative)
== END 2018-07-18 14:00 | disposition home or self-care (01) | DRG 808 ==
LOC: M ED 15:43 → M ED INP 21:22 → M MS5PR 23:05
PROVIDERS: ADMIT Internal Medicine; ATTEND Internal Medicine
DX: D70.1 Agranulocytosis secondary to cancer chemotherapy (principal); I26.99 Other pulmonary embolism without acute cor pulmonale; C85.10 Unspecified B-cell lymphoma, unspecified site; I10 Essential (primary) hypertension; T45.1X5A Adverse effect of antineoplastic and immunosuppressive drugs, initial encounter; R11.0 Nausea; K21.9 Gastro-esophageal reflux disease without esophagitis; L30.9 Dermatitis, unspecified; J30.1 Allergic rhinitis due to pollen; Z79.82 Long term (current) use of aspirin; Z79.899 Other long term (current) drug therapy

== ENCOUNTER → 2018-07-25 | Outpatient (CLI) | payer OTHER ==
[~2018-07-25] MED LIST changes: +CALC-132 PO; +CETI10CA2 PO; +CVS1CAP2 PO; +LOVE0.8I SC; +LOVE1INJ SC; +ONDA4TAB6 PO; +ONDA8TAB8 PO; +PROC5TA PO; +VALT500T PO
--- NOTE | 2018-07-25 13:11 | REP ---
Right lower extremity Duplex Doppler venous ultrasound: Real time compression and duplex Doppler interrogation of the right lower extremity deep venous system is performed. The right common femoral, superficial femoral and popliteal veins are fully compressible with transducer pressure and demonstrate normal spontaneous and phasic flow, without evidence of deep venous thrombosis. Impression: No evidence of deep venous thrombosis of the right lower extremity femoral popliteal venous system. Two complex cystic areas are seen in the popliteal fossa. There are cystic areas as well as echogenic and possible solid areas. These may represent complex popliteal cysts or solid masses. These measure 4.3 x 2.1 x 3.1 cm and 3.6 x 1.3 x 1.9 cm. Electronically Signed by Bill Mcgarry MD 07/25/2018 01:02 P
== END ==
LOC: M RAD 12:20
PROVIDERS: ATTEND Nurse Practitioner Family
DX: M25.569 Pain in unspecified knee (principal)

== ENCOUNTER 2018-09-17 19:56 | Inpatient (IN) | payer OTHER ==
[~2018-09-17] VITALS: Ht 170.2 cm; Wt 88.7 kg
[2018-09-17 21:08] LABS: EOS % 3.4 % (0.0-3.0); HEMATOCRIT 27.5 % (42.0-52.0); HEMOGLOBIN 9.6 g/dl (13.5-17.5); LYMPH % 34.5 % (24.0-44.0); MEAN CORPUSCULAR HEMOGLOBIN 32.2 pg (27.0-33.0); MEAN CORPUSCULAR HGB CONC 34.9 g/dl (32.0-36.5); MEAN CORPUSCULAR VOLUME 92.3 fl (80.0-96.0); MONO # 0.1 10^3/uL (0.0-0.8); MONO % 37.9 % (0.0-5.0); NEUTROPHILS % 20.8 % (36.0-66.0); RED BLOOD COUNT 2.98 10^6/uL (4.30-6.10)
[2018-09-17] MEDS ORDERED: NS 1,000 ML IV ONE (21:15)
[2018-09-17] MEDS ORDERED: VANCOMYCIN HCL 1,000 MG, VIAL MATE ADAPTER 1 EACH in D5W 250 ML IV ONE (21:15)
[2018-09-17] MEDS ORDERED: PIPERACILLIN/TAZOBACTAM SOD 3.375 GM in D5W MINI-BAG PLUS 50 ML IV ONE (21:15)
[2018-09-17 21:19] LABS: BLOOD UREA NITROGEN 13 MG/DL (7-18); CALCIUM LEVEL 8.6 MG/DL (8.8-10.2); CARBON DIOXIDE LEVEL 28 MEQ/L (21-32); CHLORIDE LEVEL 102 MEQ/L (98-107); CREATININE FOR GFR 0.87 MG/DL (0.70-1.30); GLOMERULAR FILTRATION RATE > 60.0 (>49); GLUCOSE, FASTING 140 MG/DL (70-100); SODIUM LEVEL 137 MEQ/L (136-145)
[2018-09-17 21:25] LABS: APPEARANCE, URINE CLEAR (CLEAR); BACTERIA, URINE AUTO NEGATIVE (NEGATIVE); BILIRUBIN, URINE AUTO NEGATIVE (NEGATIVE); BLOOD, URINE BLOOD NEGATIVE (NEGATIVE); COLOR, URINE YELLOW (YELLOW); GLUCOSE, URINE (UA) AUTO NEGATIVE (NEGATIVE); KETONE, URINE AUTO NEGATIVE (NEGATIVE); LEUKOCYTE ESTERASE, URINE AUTO NEGATIVE (NEGATIVE); MUCUS, URINE MODERATE (NEGATIVE); NITRITE, URINE AUTO NEGATIVE (NEGATIVE); PROTEIN, URINE AUTO NEGATIVE (NEGATIVE); RBC, URINE AUTO 2 /HPF (0-3); SPECIFIC GRAVITY URINE AUTO 1.021 (1.002-1.035); SQUAMOUS EPITHELIAL CELL UR AU 0 /HPF (0-6); WBC, URINE AUTO 2 /HPF (0-3)
[2018-09-17 21:36] LABS: WHITE BLOOD COUNT 0.3 10^3/uL (4.0-10.0)
[2018-09-17 21:37] LABS: BASO % 3.4 % (0.0-1.0); LYMPH # 0.1 10^3/uL (1.5-4.5); NEUTROPHILS # 0.1 10^3/uL (1.8-7.7); PLATELET COUNT, AUTOMATED 57 10^3/uL (150-450)
[2018-09-17] MEDS ORDERED: D3 H10002 PO (21:43)
[2018-09-17] MEDS ORDERED: SENO8.6T10 PO (21:43)
[2018-09-17] MEDS ORDERED: VITA500C24 PO (21:43)
[2018-09-17] MEDS ORDERED: SAW1CAPS2 PO (21:43)
--- NOTE | 2018-09-18 00:11 | PHACANCOPD ---
PHARMACY VANCOMYCIN DOSING Pt Demographics Demographics Patient Age:63 , Weight:88.640 , Gender: male Adjusted Body Weight Date: 09/18/18, Adjusted Body Weight: Kg Events Past 24 Hours Events Past 24 Hours: NO: Dialysis, Diuretic Therapy, Change in CrCl, Fever, Elevation in WBC, Pending Diagnostics, Pending Procedures, Other Vancomycin Vancomycin Target Ranges: 15-20 mcg/ml Vancomycin Load Y/N: Yes Load Dose Date Time Vancomycin Load Dose: 2000mg Date: 09-18 Time: 0200 Vancomycin Dose Date: 09/18/18. Current Vancomycin Dose: [1000mg q8h] Intermittent Dosing?: No Labs Labs Item Value Date Time White Blood Count 0.3 10^3/uL *L 09/17/182049 Glomerular Filtration Rate > 60.0 09/17/182049 Creatinine 0.87 MG/DL 09/17/182049 Blood Urea Nitrogen 13 MG/DL 09/17/182049 Vital Signs Label Value Date Time Patient Temperature 99.7 degrees F 09/17/181956 Temperature Source Oral 09/17/181956 Micro Microbiology 09/17/18 Blood Culture, Received Pending 09/17/18 Urine Culture, Received Pending Creatinine Clearance Date:09/18/18. Creatinine Clearance: [~80]. Pending Labs Trough 09-18 @1700 Assessment and Plan Maintaining Current Dose?: Yes Reason for dose change: No Dose Change Pharmacist Note Pharmacist Note Date: 09/18/18. Pharmacist note:Will monitor and make adjustments as needed. [facility] Sep 18, 2018 00:11
[2018-09-18] MEDS ORDERED: NS 1,000 ML IV SCH (00:15)
--- NOTE | 2018-09-18 00:42 | HPEPDOC ---
General Date of Admission 09/17/18 Date of Service: Sep 17, 2018 Chief Complaint The patient is a 63-year-old male admitted with a reason for visit of FEVER. Source: Patient, Family, RN/MD, Old records Exam Limitations: No limitations Severity: Moderate Associated Symptoms: Diaphoresis, Fever History of Present Illness 63 year old male with PMH of Diffuse B cell lymphoma who just finished his 6th cycle of R-CHOP on september 09 and got Neulesta on September 10 had a fever of 101'8 this afternoon so was instructed by his Oncologist in [place] to come to the ED. He took tylenol before coming to the ED . In ED work up showed a WBC count of 300. He is being admitted for Neutropenic fever. Home Medications Scheduled Ascorbic Acid (Vitamin C) 500 Mg Capsule, 500 MG PO DAILY, (Reported) Aspirin (Aspirin EC) 81 Mg Tab, 81 MG PO DAILY, (Reported) Calcium Carb/Magnesium Oxid/D3 (Calcium Magnesium + D Tablet) 1 Each Tablet, 1 TAB PO DAILY, (Reported) Cholecalciferol (Vitamin D3) (Vitamin D3) 1,000 Unit Capsule, 1,000 UNITS PO DAILY, (Reported) Lactobacillus Combo No.10 (Probiotic) 1 Each Capsule, 1 CAP PO DAILY, (Reported) Pantoprazole Sodium (Pantoprazole Sodium) 40 Mg Tablet.dr, 40 MG PO DAILY, (Reported) [place] Fruit/Zinc Picoli (Saw [place] 450 mg Capsule) 1 Each Capsule, 1 EACH PO DAILY, (Reported) Sennosides/Docusate Sodium (Senokot-S Tablet) 1 Each Tablet, 2 TAB PO DAILY, (Reported) Valacyclovir HCl (Valtrex) 500 Mg Tablet, 1,000 MG PO DAILY, (Reported) Scheduled PRN Ondansetron (Ondansetron Odt) 8 Mg Tab.rapdis, 8 MG PO Q12H PRN for NAUSEA, (Reported) Allergies Coded Allergies: POLLEN (Unverified Allergy, Intermediate, 02/23/16) mold (Verified Allergy, Unknown, 05/20/18) enoxaparin (Verified Adverse Reaction, Unknown, 09/17/18) Past Medical History Medical History 1. 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 2. Allergies 3. HTN 4. Nausea 5. GERD 6. HSV 7. Eczema 8. Mcgraw's cysts Surgical History 1. Left shoulder calcific tendonitis repair 2. Colonoscopy 3. EGD Family History Father: , 87, Parkinson's disease Mother: , 75, C. diff Siblings - Sister: x2, alive, 64 & 61 - Brother: x1, alive, 57 2 cousins, one a second cousin on his father's side, another second or third cousin on his mother's side, both of whom diagnosed with lymphoma. He also had a maternal first cousin with Hodgkin lymphoma as a young person. Social History * Smoker: Denies Alcohol: rarely Drugs: denies A-FIB/CHADSVASC A-FIB History Current/History of A-Fib/PAF?: No Review of Systems Constitutional: Reports: Fever; Denies: Chills, Malaise, Night Sweats, Weakness, Fatigue, Weight Loss Eyes: Denies: Pain, Vision change ENT: Denies: Head Aches, Ear Pain, Dysphagia Skin: Reports: Rash (folliculitis on the chest wall ); Denies: Breakdown Pulmonary: Denies: Dyspnea, Cough Cardiovascular: Denies: Chest Pain, Palpitations, Orthopnea, Paroxysmal Noc. Dyspnea, Lt Headedness Gastrointestinal: Denies: Nausea, Vomiting, Abdominal Pain, Diarrhea Genitourinary: Denies: Dysuria, Frequency, Incontinence, Retention Hematologic: Denies: Bruising, Bleeding Excessively Musculoskeletal: Denies: Neck Pain, Back Pain, Joint Pain, Muscle Pain, Spasms Psych: Reports: Mood Normal; Denies: Depression, Memory Issues Physical Examination General Exam: Positive: Alert, Cooperative, No Acute Distress Eye Exam: Positive: PERRLA, Conjunctiva & lids normal, EOMI; Negative: Sclera icteric ENT Exam: Positive: Atraumatic, Mucous membr. moist/pink, Pharynx Normal Neck Exam: Positive: Supple; Negative: JVD, thyromegaly Chest Exam: Positive: Clear to auscultation, Normal air movement Heart Exam: Positive: Rate Normal, Regular Rhythm, Normal S1, Normal S2; Negative: Murmurs, Rubs Telemetry: Positive: No significant arrhythmia Abdomen Exam: Positive: Normal bowel sounds, Soft; Negative: Tenderness, Hepatospenomegaly Extremity Exam: Negative: Clubbing, Cyanosis, Edema Skin Exam: Positive: Nl turgor and temperature; Negative: Breakdown, Lesion Neuro Exam: Positive: Normal Gait, Normal Speech, Cranial Nerves 3-12 NL, Reflexes 2+ Vital Signs Vital Signs Date Time Temp Pulse Resp B/P (MAP) Pulse Ox O2 Delivery O2 Flow Rate FiO2 09/17/18 23:37 72 18 153/70 (97) 99 Room Air 09/17/18 19:57 99.7 Laboratory Data Labs 24H Laboratory Tests 2 09/17/18 20:48: Urine Appearance CLEAR, Urine Color YELLOW, Urine pH 5.0, Urine Specific [place] 1.021, Urine Protein NEGATIVE, Urine Glucose (UA) NEGATIVE, Urine Ketones NEGA TIVE, Urine Urobilinogen 2.0H, Urine Bilirubin NEGATIVE, Urine Leukocyte Esterase NEGATIVE, Urine Blood NEGATIVE, Urine Nitrite NEGATIVE, Urine WBC (Auto) 2, Urine RBC (Auto) 2, Urine Hyaline Casts (Auto) 0, Urine Bacteria (Auto) NEGATIVE, Urine Squamous Epithelial Cells 0, Urine Mucus (Auto) MODERATE, Urine Sperm (Auto) 09/17/18 20:49: Lactic Acid Level 1.9 09/17/18 20:50: Immature Granulocyte % (Auto) 0.0, White Blood Count 0.3*L, Red Blood Count 2.98L, Hemoglobin 9.6L, Hematocrit 27.5L, Mean Corpuscular Volume 92.3, Mean Corpuscular Hemoglobin 32.2, Mean Corpuscular Hemoglobin Concent 34.9, Red Cell Distribution Width 14.5, Platelet Count 57L, Neutrophils (%) (Auto) 20.8L, Lymphocytes (%) (Auto) 34.5, Monocytes (%) (Auto) 37.9H, Eosinophils (%) (Auto) 3.4H, Basophils (%) (Auto) 3.4H, Neutrophils # (Auto) 0.1L, Lymphocytes # (Auto) 0.1L, Monocytes # (Auto) 0.1, Eosinophils # (Auto) 0.0, Basophils # (Auto) 0.0, Nucleated Red Blood Cells % (auto) 0.0, Immature Platelet Fraction 3.7, Anion Gap 7L, Glomerular Filtration Rate > 60.0, Blood Urea Nitrogen 13, Creatinine 0.87, Sodium Level 137, Potassium Level 4.0, Chloride Level 102, Carbon Dioxide Level 28, Calcium Level 8.6L CBC/BMP Laboratory Tests 09/17/18 20:50 Red Blood Count 2.98 L, Mean Corpuscular Volume 92.3, Mean Corpuscular Hemoglobin 32.2, Mean Corpuscular Hemoglobin Concent 34.9, Red Cell Distribution Width 14.5, Neutrophils (%) (Auto) 20.8 L, Lymphocytes (%) (Auto) 34.5, Monocytes (%) (Auto) 37.9 H, Eosinophils (%) (Auto) 3.4 H, Basophils (%) (Auto) 3.4 H, Neutrophils # (Auto) 0.1 L, Lymphocytes # (Auto) 0.1 L, Monocytes # (Auto) 0.1, Eosinophils # (Auto) 0.0, Basophils # (Auto) 0.0, Calcium Level 8.6 L Microbiology Microbiology 09/17/18 Blood Culture, Received Pending 09/17/18 Urine Culture, Received Pending Assessment/Plan Neutropenic fever UA clean, CXR normal, No abdominal symptoms or signs. No thrush Received Neulasta on september 10 so WBC count will probably start rising in 1 to 2 days. No role for further GCSF at this point. Spoke with Dr Osullivan commissioned fire officer bender helper for Dr Corado and he advised only cefepime bid till ANC is above 500 and he is afebrile and to adjust antibiotics if any cultures come back positive. He advised against vancomycin so it was not continued. will continue with IVF. Diet with neutropenic precautions no raw fruits or vegetables. Meats should be well cooked. Chemotherapy related pancytopenia received Neulasta last week I expect it should start improving in 1 to 2 days will continue to monitor. Diffuse B cell lymphoma finished 6 cycles of RCHOP 1 week ago follows with Dr Michael Corado hematology in [place]. [phone] continue valtrex H/o Hypertension however since since lymphoma and chemotherapy his blood pressures has been normal Plan / VTE VTE Prophylaxis Ordered?: Yes BRITTNY RIOS MD Sep 17, 2018 23:58
[2018-09-18 01:55] VITALS: BP 121/73
[2018-09-18] MEDS ORDERED: VANCOMYCIN HCL 1,000 MG, VIAL MATE ADAPTER 1 EACH in D5W 250 ML IV SCH (02:00)
[2018-09-18] MEDS ORDERED: PIPERACILLIN/TAZOBACTAM SOD 3.375 GM in D5W MINI-BAG PLUS 50 ML IV SCH (03:00)
[2018-09-18] MEDS: LACTOBACILLUS ACIDOPHILUS CAP (BACID) PO SCH ×4 (03:03→20:24)
[2018-09-18] MEDS: CEFEPIME HCL 2 GM in D5W MINI-BAG PLUS 50 ML IV SCH ×2 (03:24→14:53)
[2018-09-18 06:00] VITALS: BP 119/88
--- NOTE | 2018-09-18 07:43 | REP ---
Portable chest, 09:23 p.m., single AP view with the patient upright: Comparison is 07/16/2018. There is minor atelectasis above the left hemidiaphragm. Lung epps otherwise clear. Cardiac size is normal. The herman, mediastinum, and skeletal structures are unremarkable. Impression: Minor atelectasis above the left hemidiaphragm. Electronically Signed by Bill Mcclelland MD 09/18/2018 07:34 A
[2018-09-18] MEDS: ASPIRIN 81 MG ENTERIC TAB PO SCH (10:55)
[2018-09-18] MEDS: valACYclovir HCL 500 MG TAB PO SCH (10:55)
[2018-09-18] MEDS: PANTOPRAZOLE 40MG TAB (PROTONIX) PO SCH (10:56)
[2018-09-18] MEDS: SENOKOT S TAB PO SCH (10:56)
[2018-09-18 11:27] LABS: HEMATOCRIT 29.4 % (42.0-52.0); HEMOGLOBIN 10.1 g/dl (13.5-17.5); MEAN CORPUSCULAR HEMOGLOBIN 32.5 pg (27.0-33.0); MEAN CORPUSCULAR HGB CONC 34.4 g/dl (32.0-36.5); MEAN CORPUSCULAR VOLUME 94.5 fl (80.0-96.0); RED BLOOD COUNT 3.11 10^6/uL (4.30-6.10)
[2018-09-18 11:28] LABS: PLATELET COUNT, AUTOMATED 66 10^3/uL (150-450); WHITE BLOOD COUNT 0.8 10^3/uL (4.0-10.0)
[2018-09-18 11:41] LABS: BLOOD UREA NITROGEN 11 MG/DL (7-18); CALCIUM LEVEL 8.7 MG/DL (8.8-10.2); CARBON DIOXIDE LEVEL 31 MEQ/L (21-32); CHLORIDE LEVEL 105 MEQ/L (98-107); CREATININE FOR GFR 0.82 MG/DL (0.70-1.30); GLOMERULAR FILTRATION RATE > 60.0 (>49); GLUCOSE, FASTING 138 MG/DL (70-100); MAGNESIUM LEVEL 2.1 MG/DL (1.8-2.4); POTASSIUM SERUM 4.1 MEQ/L (3.5-5.1); SODIUM LEVEL 139 MEQ/L (136-145)
[2018-09-18 14:00] VITALS: BP 116/76
[2018-09-18 20:00] VITALS: BP 129/73
[2018-09-18] MEDS ORDERED: CLINDAMYCIN 600 MG in APPROPRIATE DILUENT 1 EA IV SCH (23:00)
[2018-09-19] MEDS: CEFEPIME HCL 2 GM in D5W MINI-BAG PLUS 50 ML IV SCH ×2 (01:55→14:07)
[2018-09-19 05:48] LABS: HEMATOCRIT 25.8 % (42.0-52.0); HEMOGLOBIN 8.7 g/dl (13.5-17.5); MEAN CORPUSCULAR HEMOGLOBIN 31.8 pg (27.0-33.0); MEAN CORPUSCULAR HGB CONC 33.7 g/dl (32.0-36.5); MEAN CORPUSCULAR VOLUME 94.2 fl (80.0-96.0); RED BLOOD COUNT 2.74 10^6/uL (4.30-6.10); WHITE BLOOD COUNT 2.1 10^3/uL (4.0-10.0)
[2018-09-19 06:00] VITALS: BP 133/83
[2018-09-19 06:14] LABS: PLATELET COUNT, AUTOMATED 58 10^3/uL (150-450)
[2018-09-19 06:17] LABS: ALBUMIN 2.9 GM/DL (3.2-5.2); ALT/SGPT 21 U/L (12-78); BILIRUBIN,TOTAL 0.7 MG/DL (0.2-1.0); BLOOD UREA NITROGEN 11 MG/DL (7-18); CALCIUM LEVEL 8.5 MG/DL (8.8-10.2); CARBON DIOXIDE LEVEL 29 MEQ/L (21-32); CHLORIDE LEVEL 106 MEQ/L (98-107); CREATININE FOR GFR 0.74 MG/DL (0.70-1.30); GLOMERULAR FILTRATION RATE > 60.0 (>49); GLUCOSE, FASTING 92 MG/DL (70-100); SODIUM LEVEL 140 MEQ/L (136-145); TOTAL PROTEIN 5.4 GM/DL (6.4-8.2)
[2018-09-19] MEDS: SENOKOT S TAB PO SCH (08:30)
[2018-09-19] MEDS: LACTOBACILLUS ACIDOPHILUS CAP (BACID) PO SCH (08:30)
[2018-09-19] MEDS: PANTOPRAZOLE 40MG TAB (PROTONIX) PO SCH (08:30)
[2018-09-19] MEDS: valACYclovir HCL 500 MG TAB PO SCH (08:30)
[2018-09-19] MEDS: ASPIRIN 81 MG ENTERIC TAB PO SCH (08:30)
[2018-09-19 09:12] LABS: ANISOCYTOSIS 2+; ATYPICAL LYMPH 3 % (0-5); BASOPHILS 4 % (0-4); LYMPHOCYTES 19 % (16-52); METAMYELOCYTES 1 % (0-0); MONOCYTES 8 % (0-8); NEUTROPHILS 59 % (35-75); POLYCHROMASIA 1+; TEAR DROP CELLS 1+
[2018-09-19 09:13] LABS: HYPOCHROMASIA 1+; PLATELET ESTIMATE DECREASED (NORMAL); POIKILOCYTOSIS 1+
[2018-09-19 11:44] LABS: BASO % 1.9 % (0.0-1.0); EOS % 1.4 % (0.0-3.0); LYMPH % 7.6 % (24.0-44.0); MONO # 0.4 10^3/uL (0.0-0.8); MONO % 16.6 % (0.0-5.0); NEUTROPHILS # 1.4 10^3/uL (1.8-7.7); NEUTROPHILS % 64.4 % (36.0-66.0)
[2018-09-19 11:45] LABS: LYMPH # 0.2 10^3/uL (1.5-4.5)
[2018-09-19 14:00] VITALS: BP 116/78
--- NOTE | 2018-09-25 06:44 | DS.PDOC ---
Discharge Summary General Date of Admission Sep 17, 2018 at 23:52 Date of Discharge 09/19/18 Discharge Summary PROCEDURES PERFORMED DURING STAY: [None]. ADMITTING DIAGNOSES: 1. [neutropenic fever ]. DISCHARGE DIAGNOSES: 1. [neutropenic fever ]. COMPLICATIONS/CHIEF COMPLAINT: Diffuse Large B Cell Lymphoma; Fever; Neutopenia. HISTORY OF PRESENT ILLNESS: [63 year old male with PMH of Diffuse B cell lymp martita who just finished his 6th cycle of R-CHOP on september 09 and got Neulesta on September 10 had a fever of 101'8 this afternoon so was instructed by his Oncologist in [place] to come to the ED. He took tylenol before coming to the ED . In ED work up showed a WBC count of 300. He is being admitted for Neutropenic fever.]. HOSPITAL COURSE: [Patient was admitted for neutropenic fever, he was given abx and blood cultures were collected. Patient was observed and had a 24 hour period of no fever and his severe neutropenia resolved and he no longer required neutropenic precautions. I discussed findings with his oncologist who agreed with the dc. Patient was stable for dc and dc home. ]. DISCHARGE MEDICATIONS: Please see below. ALLERGIES: Please see below. LABORATORY DATA: Please see below. IMAGING: [Portable chest, 09:23 p.m., single AP view with the patient upright: Comparison is 07/16/2018. There is minor atelectasis above the left hemidiaphragm. Lung epps otherwise clear. Cardiac size is normal. The herman, mediastinum, and skeletal structures are unremarkable. Impression: Minor atelectasis above the left hemidiaphragm. ] PROGNOSIS: [guarded ] ACTIVITY: [As tolerated]. DIET: [as tolerated] DISCHARGE PLAN: [f/u with pcp and oncologist in 1-2 weeks ] DISCHARGE CONDITION: [Stable]. TIME SPENT ON DISCHARGE: Greater than [20] minutes. Vital Signs/I&Os Vital Signs Date Time Temp Pulse Resp B/P (MAP) Pulse Ox O2 Delivery O2 Flow Rate FiO2 09/19/18 06:00 97.9 69 18 133/83 (100) 97 09/18/18 00:52 Room Air I&O- Last 24 Hours up to 6 AM 09/19/18 05:59 Intake Total 1930 ml Output Total 1375 ml Balance 555 ml Laboratory Data Labs 24H Laboratory Tests 2 09/18/18 11:07: Nucleated Red Blood Cells % (auto) 2.6H, Anion Gap 3L, Glomerular Filtration Rate > 60.0, Blood Urea Nitrogen 11, Creatinine 0.82, Sodium Level 139, Potassium Level 4.1, Chloride Level 105, Carbon Dioxide Level 31, Calcium Level 8.7L, Phosphorus Level 2.0L, Magnesium Level 2.1 09/19/18 05:25: Nucleated Red Blood Cells % (auto) 2.4H, Anion Gap 5L, Glomerular Filtration Rate > 60.0, Blood Urea Nitrogen 11, Creatinine 0.74, Sodium Level 140, Potassium Level 4.0, Chloride Level 106, Carbon Dioxide Level 29, Calcium Level 8.5L, Magnesium Level 2.0, Immature Platelet Fraction 4.5, Aspartate Amino Transf (AST/SGOT) 23, Alanine Aminotransferase (ALT/SGPT) 21, Alkaline Phosphatase 76, Total Bilirubin 0.7, Total Protein 5.4L, Albumin 2.9L, Albumin/Globulin Ratio 1.16 CBC/BMP Laboratory Tests 09/18/18 11:07 Red Blood Count 3.11 L, Mean Corpuscular Volume 94.5, Mean Corpuscular Hemoglobin 32.5, Mean Corpuscular Hemoglobin Concent 34.4, Red Cell Distribution Width 14.7 H, Calcium Level 8.7 L 09/19/18 05:25 Red Blood Count 2.74 L, Mean Corpuscular Volume 94.2, Mean Corpuscular Hemoglobin 31.8, Mean Corpuscular Hemoglobin Concent 33.7, Red Cell Distribution Width 14.6 H, Calcium Level 8.5 L, Aspartate Amino Transf (AST/SGOT) 23, Alanine Aminotransferase (ALT/SGPT) 21, Alkaline Phosphatase 76, Total Bilirubin 0.7, Total Protein 5.4 L, Albumin 2.9 L Microbiology Microbiology 09/18/18 Blood Fungal Culture, Received Pending 09/18/18 Blood Culture - Preliminary, Resulted No growth after 24 hours . All specim... 09/17/18 Blood Culture - Preliminary, Resulted No growth after 24 hours . All specim... 09/17/18 Urine Culture - Final, Complete Discharge Medications Scheduled Ascorbic Acid (Vitamin C) 500 Mg Capsule, 500 MG PO DAILY, (Reported) Aspirin (Aspirin EC) 81 Mg Tab, 81 MG PO DAILY, (Reported) Calcium Carb/Magnesium Oxid/D3 (Calcium Magnesium + D Tablet) 1 Each Tablet, 1 TAB PO DAILY, (Reported) Cholecalciferol (Vitamin D3) (Vitamin D3) 1,000 Unit Capsule, 1,000 UNITS PO DAILY, (Reported) Lactobacillus Combo No.10 (Probiotic) 1 Each Capsule, 1 CAP PO DAILY, (Reported) Pantoprazole Sodium (Pantoprazole Sodium) 40 Mg Tablet.dr, 40 MG PO DAILY, (Reported) Saw [place] Fruit/Zinc Picoli (Saw [place] 450 mg Capsule) 1 Each Capsule, 1 EACH PO DAILY, (Reported) Sennosides/Docusate Sodium (Senokot-S Tablet) 1 Each Tablet, 2 TAB PO DAILY, (Reported) Valacyclovir HCl (Valtrex) 500 Mg Tablet, 1,000 MG PO DAILY, (Reported) Scheduled PRN Ondansetron (Ondansetron Odt) 8 Mg Tab.rapdis, 8 MG PO Q12H PRN for NAUSEA, (Reported) Allergies Coded Allergies: POLLEN (Unverified Allergy, Intermediate, 02/23/16) mold (Verified Allergy, Unknown, 05/20/18) enoxaparin (Verified Adverse Reaction, Unknown, 09/17/18) CORNEL VELASCO MD Sep 19, 2018 07:58
== END 2018-09-19 15:45 | disposition home or self-care (01) | DRG 809 ==
LOC: M ED 19:56 → M ED INP 23:52 → M MSPAV 09-18 02:00
PROVIDERS: ADMIT Internal Medicine Nephrology; ATTEND Internal Medicine
DX: D70.9 Neutropenia, unspecified (principal); C83.30 Diffuse large B-cell lymphoma, unspecified site; K21.9 Gastro-esophageal reflux disease without esophagitis; D61.810 Antineoplastic chemotherapy induced pancytopenia; J30.1 Allergic rhinitis due to pollen; L30.9 Dermatitis, unspecified; Z79.82 Long term (current) use of aspirin; Z79.899 Other long term (current) drug therapy; Z88.8 Allergy status to other drugs, medicaments and biological substances; Z91.048 Other nonmedicinal substance allergy status

== ENCOUNTER → 2018-09-29 | Outpatient (REF) | payer OTHER ==
[~2018-09-29] MED LIST changes: +D3 H10002 PO; +SAW1CAPS2 PO; +SENO8.6T10 PO; +VITA500C24 PO
== END ==
LOC: M LAB REF 16:49
PROVIDERS: ATTEND Physician Assistant
DX: R35.0 Frequency of micturition (principal)

== ENCOUNTER → 2018-11-04 | Outpatient (CLI) | payer OTHER ==
[~2018-11-04] MED LIST changes: +SILV40CR EXT
--- NOTE | 2018-11-06 12:30 | RADONC ---
RADIATION ONCOLOGY CONSULTATION NOTE DATE: 11/04/2018 DIAGNOSIS: Diffuse large B-cell lymphoma. STAGE: IIIA. ECOG PERFORMANCE STATUS: 0. CONSULTATION NOTE: Mr. Fink is a very pleasant 63-year-old white male with the diagnosis of a stage IIIA diffuse large B-cell lymphoma who is presenting to us today status post six cycles of R-CHOP chemotherapy completed on September 09, 2018 with residual disease in the left inguinal region for consideration of consolidative external beam radiation therapy to his residual disease. HISTORY OF PRESENT ILLNESS: The patient was in his usual state of health and was generally active and asymptomatic until February of this year 2018. At that time he felt a lump in his left groin. He was seen in Urgent Care and an ultrasound was undertaken which showed a enlarge lymph node. A fine-needle aspiration biopsy was undertaken and pathology revealed a diffuse large B-cell lymphoma. CT scan of the abdomen and pelvis was undertaken on 03/26/2018 that failed to show any other disease. A CT scan on 04/25/2018 did show an enlarge left axillary lymph node. A PET scan was also done at an outside institution, I do not have the results of that study, however it is said to show stage III disease. Subsequent axillary lymph node biopsy also showed a follicular lymphoma. It was thought that is the inguinal biopsy therefore showed transformed disease. The patient subsequently underwent six cycles of R-CHOP chemotherapy having completed the last one on September 09, 2018. He did well. A subsequent CT scan done on 10/15/2018 reveals a complete response to the follicular lymphoma in the axilla. The diffuse large B-cell lymphoma with partial metabolic treatment response continued to show some residual disease in the right superficial inguinal region. The SUV value in the right superficial inguinal region which now measures 2.0 x 1.4 cm was SUV value 3.8. We are attempting to obtain actual copies of this PET scan for further evaluation. The patient was seen by radiation oncology at the [facility] and it was recommended as per the NCCN guidelines to deliver consolidative radiation therapy to a dose of approximately 4400 cGy. The patient has decided to be treated closer to home. PAST MEDICAL HISTORY: The patient's past medical history is positive for arthritis, gastroesophageal reflux disease (GERD), hypertension, panic attacks and polycythemia. ALLERGIES: The patient is allergic to LOVENOX. FAMILY HISTORY: The patient's family history is positive for a paternal grandfather with colorectal cancer and cousins with Hodgkin's lymphoma. REVIEW OF SYSTEMS: The patient's review of systems is noncontributory. He denies nausea, vomiting, fevers, chills, night sweats, diplopia, headaches, anxiety or depression, anorexia, weight loss, visual disturbances, chest pain, urinary or bowel difficulties, bone pain, or neurological problems. PHYSICAL EXAMINATION: The patient is a well-developed, well-nourished white male in no acute distress. HEENT: Exam is normocephalic, atraumatic. Extraocular movements are intact. There is no palpable cervical, supraclavicular, infraclavicular or axillary lymphadenopathy. There is no palpable left inguinal lymphadenopathy. There is however a small 1.5 cm right inguinal lymph node which is still palpable. The patient's lungs are clear to auscultation and percussion. His heart has regular rate and rhythm. His abdomen is benign with no hepatosplenomegaly, masses or tenderness. Skeletal examination reveals no tenderness to pressure or percussion of the bony skeleton. Extremities: Reveal no clubbing, cyanosis or edema. Neurologic exam is grossly intact as is the remainder of the physical examination. ASSESSMENT: I had a lengthy discussion with this patient and I agree with his physicians both his medical oncologist and his radiation oncologist at the [facility]. I have printed out and gone over the NCCN guidelines with this patient with regards to diffuse large B-cell lymphomas and the role of post chemotherapy radiation for consolidation of areas of residual disease following such chemo. In addition, we discussed logistics of treatment planning, simulation, and subsequent fractionated daily radiation treatments. I discussed the potential benefits and possible acute and chronic sequelae of external beam radiation therapy in detail. I am scheduling the patient for the next available simulation slot and radiation treatments will begin subsequently. We are also attempting to obtain copies of the patient's radiation oncology consultation from [facility] as well as a CD with the actual images of the PET scan and other studies for further evaluation and use during treatment planning. Thank you for allowing us to participate in the care of this very pleasant gentleman. If I could be of any further assistance or provide you with any information, please feel free to contact me anytime. CC: Dr. Brigid Upton cc: MD Silvia Mendez DO
== END ==
LOC: M ONCR 13:55
PROVIDERS: ATTEND Radiology Radiation Oncology
DX: C83.30 Diffuse large B-cell lymphoma, unspecified site (principal)

== ENCOUNTER → 2018-11-17 | Outpatient (RCR) | payer OTHER ==
[2018-11-07 11:25] LABS: HEMATOCRIT 42.9 % (42.0-52.0); HEMOGLOBIN 14.4 g/dl (13.5-17.5); MEAN CORPUSCULAR HEMOGLOBIN 31.9 pg (27.0-33.0); MEAN CORPUSCULAR HGB CONC 33.6 g/dl (32.0-36.5); MEAN CORPUSCULAR VOLUME 95.2 fl (80.0-96.0); NEUTROPHILS # 2.7 10^3/uL (1.8-7.7); NEUTROPHILS % 59.3 % (36.0-66.0); RED BLOOD COUNT 4.51 10^6/uL (4.30-6.10); WHITE BLOOD COUNT 4.5 10^3/uL (4.0-10.0)
--- NOTE | 2018-11-10 14:08 | RADONC ---
RADIATION ONCOLOGY SIMULATION NOTE: DATE: 11/07/2018 CHART NUMBER: [id number] Mr. Fink was taken to the CT scan for CT simulation of his pelvic lymph node field. CT was accomplished without difficulty or discomfort. Radiation treatment planning is underway and radiation treatments will begin subsequently. An immobilization device was created and will be used throughout the course of treatment. It was created without difficulty or discomfort. I was physically present throughout the course of CT simulation.
[~2018-11-17] MED LIST changes: -SILV40CR EXT
--- NOTE | 2018-11-17 10:51 | RADONC ---
RADIATION ONCOLOGY PROGRESS NOTE DATE: 11/17/2018 CHART NUMBER: [id number] Mr. Fink underwent his first fraction of radiation today to his inguinal region. It was tolerated without difficulty or discomfort. The patient's review of systems is noncontributory. Denies nausea, vomiting, fevers, chills, night sweats, diplopia, headaches, anxiety or depression, anorexia, weight loss, visual disturbances, chest pain, urinary or bowel difficulties, bone pain, or neurological problems. PHYSICAL EXAMINATION: The patient's skin clearly shows no evidence of radiation change present since this was his first fraction of treatment. The remainder of his physical exam remains unchanged. ASSESSMENT AND PLAN: The patient tolerated his first fraction of radiation quite well, and radiation will continue as scheduled.
== END ==
LOC: M ONCR 11-07 10:13
PROVIDERS: ATTEND Radiology Radiation Oncology
DX: C83.38 Diffuse large B-cell lymphoma, lymph nodes of multiple sites (principal)

== ENCOUNTER 2018-12-16 07:51 | Outpatient (RCR) | payer OTHER ==
--- NOTE | 2018-11-24 10:26 | RADONC ---
RADIATION ONCOLOGY PROGRESS NOTE DATE: 11/24/2018 CHART: [id number] Mr. Fink is presently at a dose of 1200 cGy to his right inguinal region and is tolerating treatments quite well at this point with no complaints related to his radiation therapy. He is having no difficulties whatsoever. REVIEW OF SYSTEMS: The patient's review of systems is noncontributory. Denies nausea, vomiting, fevers, chills, night sweats, diplopia, headaches, anxiety or depression, anorexia, weight loss, visual disturbances, chest pain, urinary or bowel difficulties, bone pain, or neurological problems. PHYSICAL EXAMINATION: The patient's skin is in good condition with no evidence of radiation change present. There is no moist or dry desquamation. The remainder of his physical exam remains unchanged. Mr. Fink is tolerating treatments quite well and radiation will continue as scheduled.
--- NOTE | 2018-12-01 09:56 | RADONC ---
RADIATION ONCOLOGY PROGRESS NOTE DATE: 12/01/2018 CHART NUMBER: [id number] PROGRESS NOTE: Mr. Fink is presently at a dose of 2200 cGy to his right inguinal region and is tolerating treatments quite well at this point with no complaints related to his radiation therapy. He is having no urinary or bowel difficulties and no bone pain. REVIEW OF SYSTEMS: The patient's review of systems is noncontributory. Denies nausea, vomiting, fevers, chills, night sweats, diplopia, headaches, anxiety or depression, anorexia, weight loss, visual disturbances, chest pain, urinary or bowel difficulties, bone pain, or neurological problems. PHYSICAL EXAMINATION: The patient's skin is in good condition with no evidence of moist or dry desquamation. The remainder of his physical exam remains unchanged. Mr. Fink is tolerating treatments quite well and radiation will continue as scheduled.
--- NOTE | 2018-12-09 06:54 | RADONC ---
RADIATION ONCOLOGY PROGRESS NOTE DATE: 12/08/2018 CHART #: [id number] DIAGNOSIS: Large B-cell lymphoma stage III A. Mr. Fink with a diagnosis of a stage III A diffuse large B-cell lymphoma status post six cycles of R-CHOP chemotherapy is currently receiving local regional radiotherapy. He had residual disease post chemotherapy in the left inguinal region. He is receiving local regional radiotherapy to consolidate the area of presumed persistent disease, and he is at a dose of 3200 cGy of an anticipated 4400 cGy. Treatments are going well and he denies any major side effects with the exception of some skin irritation which he has noticed just over the weekend. REVIEW OF SYSTEMS: He denies any nausea, vomiting, diarrhea, dysuria, hematuria or blood per rectum. His energy is such that he is able to maintain most of his day-to-day activities without any alteration of his lifestyle. Skin irritation is denied. EXAMINATION FINDINGS: The skin within the left groin shows a minimal erythematous blush without focal desquamation. There is no palpable peripheral lymphadenopathy noted. Lungs are clear. The remainder of the physical examination is unchanged. IMPRESSION: Minimal skin erythema. PLAN: We have given him some samples of Aquaphor to place on the skin and we will watch him very carefully during the rest of the week and possibly give him some Silvadene if we feel that he needs it. MTDD
--- NOTE | 2018-12-15 09:41 | RADONC ---
RADIATION ONCOLOGY PROGRESS NOTE DATE: CHART NUMBER: [id number] PROGRESS NOTE: Mr. Fink is presently at a dose of 4200 cGy to his right inguinal region and is tolerating treatments quite well at this point with no complaints related to his radiation therapy. He is having no significant discomfort. REVIEW OF SYSTEMS: The patient's review of systems is noncontributory. Denies nausea, vomiting, fevers, chills, night sweats, diplopia, headaches, anxiety or depression, anorexia, weight loss, visual disturbances, chest pain, urinary or bowel difficulties, bone pain, or neurological problems. PHYSICAL EXAMINATION: The patient's skin is in good condition with just a small area of dry desquamation. There is some erythema present. The remainder of his physical exam remains unchanged. Mr. Fink is tolerating treatments quite well and radiation will continue as scheduled.
[~2018-12-16 07:51] MED LIST changes: +SILV40CR EXT
--- NOTE | 2018-12-17 13:00 | RADONC ---
RADIATION ONCOLOGY TREATMENT SUMMARY DATE: 12/16/2018 CHART NUMBER: [id number] DIAGNOSIS: Diffuse large B-cell lymphoma. STAGE: IIIA. ECOG PERFORMANCE STATUS: 0. TREATMENT SUMMARY: Mr. Fink is a very pleasant 63-year-old white male with the diagnosis of stage IIIA diffuse large B-cell lymphoma who presented to us status post six cycles of R-CHOP chemotherapy completed on September 09, 2018 with residual disease in the left inguinal region for consideration of consolidative external beam radiation therapy to the residual disease. We treated the patient to his right inguinal region for a dose of 4400 cGy delivered in 22 fractions of 200 cGy each over 29 elapsed days from 11/17/2018 to 12/16/2018. The patient's right inguinal region was treated on a linear accelerator utilizing a 6 MV photon beam via 3-D conformal technique. Mr. Fink tolerated his treatments quite well and was able complete therapy as prescribed without interruption with no significant difficulties other than a small area of dry/moist desquamation. The patient was given Silvadene for this. I have scheduled the patient see me again in 1 month further followup. He will also continue to be followed by his other physicians as well. CC: Dr. Brigid Upton cc: MD Silvia Mendez DO
== END 2018-12-18 ==
LOC: M ONCR 07:51
PROVIDERS: ATTEND Radiology Radiation Oncology
DX: C83.38 Diffuse large B-cell lymphoma, lymph nodes of multiple sites (principal)

== ENCOUNTER → 2019-01-14 | Outpatient (CLI) | payer OTHER ==
--- NOTE | 2019-01-18 08:18 | RADONC ---
RADIATION ONCOLOGY FOLLOWUP NOTE DATE: 01/14/2019 CHART NUMBER: [id number] DIAGNOSIS: Diffuse large B-cell lymphoma. STAGE: IIIA. ECOG PERFORMANCE STATUS: 0. FOLLOWUP NOTE: Mr. Fink is a very pleasant 64-year-old white male with the diagnosis of a stage IIIA diffuse large B-cell lymphoma who is presenting to us today for routine followup visit 1 month post completion of external beam radiation therapy. The patient presents today reporting that he is doing quite well with no complaints at this time related to his radiation therapy or disease. He has no skin pain at this time. He reports that his skin has been healing specifically over the last week as soon and has improved significantly. He is having no fevers, chills, or night sweats. The patient's review of systems is noncontributory. He denies nausea, vomiting, fevers, chills, night sweats, diplopia, headaches, anxiety or depression, anorexia, weight loss, visual disturbances, chest pain, urinary or bowel difficulties, bone pain, or neurological problems. PHYSICAL EXAMINATION: The patient is a well-developed, well-nourished male in no acute distress. HEENT exam is normocephalic, atraumatic. Extraocular movements are intact. There is no palpable cervical, supraclavicular, infraclavicular, axillary, or inguinal lymphadenopathy present. Lungs are clear to auscultation and percussion. Heart has a regular rate and rhythm. Abdomen is benign with no hepatosplenomegaly, masses, or tenderness. Rectal examination reveals a normal anal sphincter tone. His prostate is smooth with no evidence of nodularity. Skeletal examination reveals no tenderness to pressure or percussion of the bony skeleton. Extremities reveal no clubbing, cyanosis, or edema. Neurologic exam is grossly intact as is the remainder of the physical examination. ASSESSMENT: Mr. Fink is clinically DAISHA at this time. He is being followed and managed closely by Dr. Michael Corado MD at the [facility] in [place]. Indeed he was just seen by Dr. Michael Corado last week. He is scheduled for a PET scan in mid February and will be seen by Dr. Corado again on March 18. Dr. Bell will be continuing his close followup at this patient and in light of this and my impending care home I have discharged him from my followup except on a as needed basis. I will be here probably at least for another 6 months and let him know that we are available to him at anytime if we could provide him with any assistance or be of any help whatsoever. The patient has my cell phone number as well as my office number and I assured him we are here if he has any questions. In the meantime he will continue his followup with his other physicians. I did explain to him that we have a new radiation oncologist starting here in September also from the [facility], Dr. Bernardino Cruz MD who will be available to him as well. CC: Dr. Brigid Upton cc: MD Silvia Mendez,
== END ==
LOC: M ONCR 08:51
PROVIDERS: ATTEND Radiology Radiation Oncology
DX: C83.38 Diffuse large B-cell lymphoma, lymph nodes of multiple sites (principal)

== ENCOUNTER → 2019-03-30 | Outpatient (CLI) | payer OTHER ==
[~2019-03-30] MED LIST changes: -IRBE300T10 PO; +IRBE300T7 PO
--- NOTE | 2019-03-30 11:29 | REP ---
Clinical: Bilateral knee pain. Technique: AP, lateral, and sunrise views of the right and left knee. Findings: Right knee demonstrates mild arthritic changes including cortical irregularity to the femoral condyles, increased sclerosis to the tibial plateau with mild lateral joint space narrowing and small calcifications within the lateral collateral ligament. Lateral view demonstrates subtle spurring along the posterior patellar margin. No acute fracture or dislocation. No obvious effusion. Left knee demonstrates mild arthritic changes including cortical irregularity to the femoral condyles and lateral tibial plateau. Lateral view demonstrates subtle spurring along the posterior patellar margin. No acute fracture or dislocation. No obvious effusion. Impression: Mild arthritic changes (right greater than left). Electronically Signed by Dusty Urias MD 03/30/2019 11:21 A
[2019-03-30 14:57] LABS: C REACTIVE PROTEIN QUANTITATIV < 0.30 MG/DL (0.00-0.30); FREE T4 1.28 NG/DL (0.76-1.46); RHEUMATOID FACTOR QUANT < 10.0 IU/ML (<15.0); URIC ACID 5.3 MG/DL (3.5-7.2)
[2019-03-30 14:59] LABS: TOTAL 25(OH) VITAMIN D 44.8 NG/ML (30.0-100.0)
[2019-04-02 00:14] LABS: ANTINUCLEAR ANTIBODIES DIRECT Negative (Negative); CYCLIC CITRULLINATED PEPTIDE 14 units (0-19); Lyme Disease IgG/IgM Antibodie <0.91 ISR (0.00-0.90); Lyme Disease IgM Ab Quantitati <0.80 index (0.00-0.79)
== END ==
LOC: M WUC 10:47
PROVIDERS: ATTEND Family Medicine
DX: M25.561 Pain in right knee (principal)

== ENCOUNTER → 2019-04-10 | Outpatient (CLI) | payer OTHER ==
[2019-04-10 07:17] LABS: CHOLESTEROL RISK RATIO 4.093 (<5)
== END ==
LOC: M LAB 06:21
PROVIDERS: ATTEND Family Medicine
DX: I25.83 Coronary atherosclerosis due to lipid rich plaque (principal)

== ENCOUNTER → 2019-04-22 | Outpatient (CLI) | payer OTHER ==
[2019-04-22 07:37] LABS: BLOOD UREA NITROGEN 16 MG/DL (7-18); CALCIUM LEVEL 8.6 MG/DL (8.8-10.2); CARBON DIOXIDE LEVEL 28 MEQ/L (21-32); CHLORIDE LEVEL 109 MEQ/L (98-107); CREATININE FOR GFR 0.89 MG/DL (0.70-1.30); GLOMERULAR FILTRATION RATE > 60.0 (>49); GLUCOSE, FASTING 94 MG/DL (70-100); MAGNESIUM LEVEL 2.2 MG/DL (1.8-2.4); POTASSIUM SERUM 4.7 MEQ/L (3.5-5.1); SODIUM LEVEL 144 MEQ/L (136-145)
== END ==
LOC: M LAB 06:12
PROVIDERS: ATTEND Internal Medicine Cardiovascular Disease
DX: I48.91 Unspecified atrial fibrillation (principal)

== ENCOUNTER → 2019-11-12 | Outpatient (CLI) | payer OTHER ==
[~2019-11-12] MED LIST changes: +PANT40TA29 PO; -PANT40TA3 PO; -PROC5TA PO; +PROC5TAB57 PO; -VITA1TAB23 PO; +VITA250T26 PO
[2019-11-12 07:18] LABS: BASO % 0.5 % (0.0-1.0); EOS # 0.2 10^3/uL (0.0-0.5); EOS % 4.1 % (0.0-3.0); HEMATOCRIT 47.6 % (42.0-52.0); HEMOGLOBIN 16.5 g/dl (13.5-17.5); MEAN CORPUSCULAR HEMOGLOBIN 30.3 pg (27.0-33.0); MEAN CORPUSCULAR HGB CONC 34.7 g/dl (32.0-36.5); MEAN CORPUSCULAR VOLUME 87.5 fl (80.0-96.0); MONO # 0.4 10^3/uL (0.0-0.8); MONO % 8.6 % (0.0-5.0); NEUTROPHILS # 2.6 10^3/uL (1.5-8.5); NEUTROPHILS % 63.3 % (36.0-66.0); PLATELET COUNT, AUTOMATED 137 10^3/uL (150-450); RED BLOOD COUNT 5.44 10^6/uL (4.30-6.10); WHITE BLOOD COUNT 4.2 10^3/uL (4.0-10.0)
[2019-11-12 07:35] LABS: ALT/SGPT 25 U/L (12-78); BILIRUBIN,TOTAL 0.8 MG/DL (0.2-1.0); BLOOD UREA NITROGEN 15 MG/DL (7-18); CALCIUM LEVEL 8.7 MG/DL (8.8-10.2); CARBON DIOXIDE LEVEL 29 MEQ/L (21-32); CHLORIDE LEVEL 105 MEQ/L (98-107); CHOLESTEROL LEVEL 159 MG/DL (<200); CHOLESTEROL RISK RATIO 3.878 (<5); GLOMERULAR FILTRATION RATE > 60.0 (>49); GLUCOSE, FASTING 93 MG/DL (70-100); HDL CHOLESTEROL 41 MG/DL (>40); LDL CHOLESTEROL 101 MG/DL (<100); NON-HDL-C 118 MG/DL; POTASSIUM SERUM 4.4 MEQ/L (3.5-5.1); RHEUMATOID FACTOR QUANT < 10.0 IU/ML (<15.0); SODIUM LEVEL 140 MEQ/L (136-145); TOTAL PROTEIN 6.2 GM/DL (6.4-8.2); TRIGLYCERIDES LEVEL 85 MG/DL (<150)
[2019-11-12 08:17] LABS: ERYTHROCYTE SEDIMENTATION RATE 3 mm/hr (0-20)
[2019-11-12 09:45] LABS: TOTAL 25(OH) VITAMIN D 49.4 NG/ML (30.0-100.0)
[2019-11-14 02:07] LABS: ANA (HEP2) Negative (.); CYCLIC CITRULLINATED PEPTIDE 9 units (0-19)
== END ==
LOC: M LAB 06:21
PROVIDERS: ATTEND Physician Assistant
DX: C85.90 Non-Hodgkin lymphoma, unspecified, unspecified site (principal); M25.50 Pain in unspecified joint; Z13.220 Encounter for screening for lipoid disorders

== ENCOUNTER → 2020-01-11 | Outpatient (CLI) | payer MEDICARE, OTHER ==
[~2020-01-11] MED LIST changes: +GASTROGRAFIN SOLUTION 30ML (Q9963) As Ordered ONE; +ISOVUE-370 76% 100ML VIAL As Ordered ONE
--- NOTE | 2020-01-11 16:23 | REP ---
INDICATION: NONHODGKINS LYMPHOMA, SOB, EVAL FOR RECURRENCE COMPARISON: 07/16/2018 TECHNIQUE: Axial contrast enhanced images from the thoracic inlet to the upper abdomen with coronal and sagittal reformations using 75 ml Isovue 370 intravenous contrast material. This CT examination was performed using the following dose reduction techniques: Automated exposure control, adjustment of mA and/or kv according to the patient's size, and use of iterative reconstruction technique. FINDINGS: Bilateral lung epps are well aerated and clear. No consolidation, suspicious nodule or mass lesion. Tracheobronchial tree is patent. No axillary, hilar, or mediastinal adenopathy. Atherosclerotic changes to the thoracic aorta and coronary arteries noted without aortic aneurysm or dissection. No cardiomegaly or pericardial effusion. Musculoskeletal structures demonstrate age-related changes without acute osseous abnormality. IMPRESSION: 1. No acute mediastinal or pleuroparenchymal process. 2. No adenopathy. No effusion. <Electronically signed by Dusty Urias > 01/11/20 [id number]
--- NOTE | 2020-01-11 16:32 | REP ---
INDICATION: NONHODGKINS LYMPHOMA, SOB, EVAL FOR RECURRENCE. COMPARISON: 10/07/2018 TECHNIQUE: Axial contrast-enhanced images from the lung bases to the pubic symphysis using 100 cc Isovue 370 intravenous contrast material. Delayed images of the abdomen along with coronal and sagittal reformations obtained. This CT examination was performed using the following dose reduction techniques: Automated exposure control, adjustment of mA and/or kv according to the patient's size, and the use of iterative reconstruction technique. FINDINGS: Liver, spleen, pancreas, gallbladder, bilateral adrenal glands and kidneys are stable/relatively normal. Benign hepatic cysts are again identified. The enteric system including stomach, small, and large bowel appears normal. No evidence for obstruction or acute inflammatory process. Pelvis demonstrates normal bladder and mildly enlarged prostate gland. No ascites. No free air. No intraperitoneal or retroperitoneal adenopathy. Left groin nodes are essentially unchanged, nonspecific and measure up to 13 mm. Abdominal aorta and vasculature appear normal. Musculoskeletal structures demonstrate degenerative changes without acute osseous abnormality. IMPRESSION: No acute abdominopelvic pathology appreciated. No significant adenopathy. No ascites. <Electronically signed by Dusty Urias > 01/11/20 [id number]
== END ==
LOC: M RAD 13:56
PROVIDERS: ATTEND Physician Assistant
DX: C85.90 Non-Hodgkin lymphoma, unspecified, unspecified site (principal)
CPT/HCPCS: 71260; 74177; Q9963; Q9967

== ENCOUNTER → 2020-02-29 | Outpatient (CLI) | payer MEDICARE, OTHER ==
[~2020-02-29] MED LIST changes: -GASTROGRAFIN SOLUTION 30ML (Q9963) As Ordered ONE; -ISOVUE-370 76% 100ML VIAL As Ordered ONE
[2020-02-29 07:01] LABS: BASO % 0.6 % (0.0-1.0); EOS # 0.2 10^3/uL (0.0-0.5); EOS % 3.1 % (0.0-3.0); HEMATOCRIT 48.4 % (42.0-52.0); HEMOGLOBIN 16.3 g/dl (13.5-17.5); LYMPH # 1.2 10^3/uL (1.5-5.0); LYMPH % 21.8 % (24.0-44.0); MEAN CORPUSCULAR HGB CONC 33.7 g/dl (32.0-36.5); MONO # 0.4 10^3/uL (0.0-0.8); MONO % 7.9 % (0.0-5.0); NEUTROPHILS # 3.6 10^3/uL (1.5-8.5); NEUTROPHILS % 66.2 % (36.0-66.0); PLATELET COUNT, AUTOMATED 139 10^3/uL (150-450); RED BLOOD COUNT 5.44 10^6/uL (4.30-6.10); WHITE BLOOD COUNT 5.5 10^3/uL (4.0-10.0)
[2020-02-29 07:29] LABS: ALT/SGPT 24 U/L (12-78); BILIRUBIN,TOTAL 1.1 MG/DL (0.2-1.0); BLOOD UREA NITROGEN 15 MG/DL (7-18); CALCIUM LEVEL 8.5 MG/DL (8.8-10.2); CARBON DIOXIDE LEVEL 31 MEQ/L (21-32); CHLORIDE LEVEL 103 MEQ/L (98-107); CREATININE FOR GFR 0.85 MG/DL (0.70-1.30); GLOMERULAR FILTRATION RATE > 60.0 (>49); GLUCOSE, FASTING 97 MG/DL (70-100); POTASSIUM SERUM 4.5 MEQ/L (3.5-5.1); SODIUM LEVEL 139 MEQ/L (136-145); TOTAL PROTEIN 6.7 GM/DL (6.4-8.2)
== END ==
LOC: M LAB 06:12
PROVIDERS: ATTEND Internal Medicine
DX: C82.90 Follicular lymphoma, unspecified, unspecified site (principal)

== ENCOUNTER → 2020-04-04 | Outpatient (CLI) | payer MEDICARE, OTHER ==
--- NOTE | 2020-04-04 16:35 | REP ---
INDICATION: ENLARGED LYMPH NODE/MASS, HX OF RT GROIN LYMPHOMA. COMPARISON: Ultrasound 03/12/2018; CT abdomen pelvis 01/11/2020, 03/26/2018.. TECHNIQUE: Scanning through the right inguinal region performed with grayscale and color imaging. FINDINGS: The area of the patient's palpable finding in the right groin where there has been known lymphoma (non-Hodgkin's) scanning was performed and an echogenic avascular area noted measuring 2 x 1.1 x 1 cm seen without normal valdo architecture. There are 2 lymph nodes with hypoechoic periphery and hyperechoic central zone as more normal appearing lymph nodes and measuring 3.3 x 0.7 x 2.1 cm and 2.2 x 0.5 x 1.7 cm. No other findings. No abnormal fluid collections. IMPRESSION: 1. There are 2 sonographically and morphologically normal-appearing nodes in the inguinal region on the right at 3.3 by 0.7 cm and 2.2 x 0.5 cm in long by short axis. These have morphologically normal echogenic central and hypoechoic peripheral characteristics for lymph nodes. 2. An echogenic avascular I subtle hyper echoic focus 2 x 1 x 1.1 cm also seen in the groin which does not have normal valdo morphology. Could not exclude an abnormal lymph node or other lesion. This does not have appearance for abscess or phlegmon. It is visualized on images 1 through 6. <Electronically signed by Bam Martinez > 04/04/20 [id number]
== END ==
LOC: M RAD 13:31
PROVIDERS: ATTEND Physician Assistant
DX: R59.0 Localized enlarged lymph nodes (principal)

== ENCOUNTER → 2020-05-04 | Outpatient (CLI) | payer MEDICARE, OTHER ==
--- NOTE | 2020-05-05 13:46 | SLEEPHOME ---
DATE: 05/04/2020 ORDERED BY: Dr. Clark [facility] home sleep testing was performed due to concern for the obstructive sleep apnea syndrome in this patient with a history of snoring. For testing, a nocturnal T3 respiratory monitoring device was used. Continuous record was made of pulse, oxygen saturation, air flow, chest and abdominal strain, and body position. There was 9 hours and 15 minutes of data reviewed. There was 7 hours and 17 minutes reported as sleep time. During the interval marked sleep time, there were 66 respiratory events identified of 10 seconds in duration or greater for a respiratory event index of 9.1. The events were primarily obstructive. Baseline pulse rate 49 beats per minute. Pulse rate ranged 30-76. Baseline saturation 93%. Saturations fell to 83%, and testing was performed in both the supine and nonsupine positions. IMPRESSION: Abnormal home sleep testing with repetitive respiratory events and oxygen desaturations to 83% with a respiratory event index of 9.1 is consistent with the obstructive sleep apnea syndrome. RECOMMENDATION: The patient should be encouraged to undergo formal sleep evaluation.
== END ==
LOC: M SLEEP HO 10:18
PROVIDERS: ATTEND Internal Medicine Cardiovascular Disease
DX: R06.83 Snoring (principal)

== ENCOUNTER → 2020-08-08 | Outpatient (CLI) | payer MEDICARE, OTHER ==
[2020-08-08 06:57] LABS: BASO % 0.8 % (0.0-1.0); EOS # 0.3 10^3/uL (0.0-0.5); EOS % 5.3 % (0.0-3.0); HEMATOCRIT 47.9 % (42.0-52.0); HEMOGLOBIN 16.5 g/dl (13.5-17.5); LYMPH # 1.2 10^3/uL (1.5-5.0); LYMPH % 24.6 % (24.0-44.0); MEAN CORPUSCULAR HEMOGLOBIN 30.4 pg (27.0-33.0); MEAN CORPUSCULAR HGB CONC 34.4 g/dl (32.0-36.5); MEAN CORPUSCULAR VOLUME 88.4 fl (80.0-96.0); MONO # 0.4 10^3/uL (0.0-0.8); MONO % 8.7 % (2.0-8.0); PLATELET COUNT, AUTOMATED 137 10^3/uL (150-450); RED BLOOD COUNT 5.42 10^6/uL (4.30-6.10)
[2020-08-08 07:34] LABS: ALBUMIN 3.9 GM/DL (3.2-5.2); ALT/SGPT 22 U/L (12-78); BLOOD UREA NITROGEN 15 MG/DL (7-18); CALCIUM LEVEL 8.7 MG/DL (8.8-10.2); CARBON DIOXIDE LEVEL 30 MEQ/L (21-32); CHLORIDE LEVEL 107 MEQ/L (98-107); CHOLESTEROL LEVEL 165 MG/DL (<200); CHOLESTEROL RISK RATIO 4.024 (<5); CREATININE FOR GFR 0.88 MG/DL (0.70-1.30); FREE T4 1.04 NG/DL (0.76-1.46); GLOMERULAR FILTRATION RATE > 60.0 (>49); GLUCOSE, FASTING 90 MG/DL (70-100); HDL CHOLESTEROL 41 MG/DL (>40); LDL CHOLESTEROL 108 MG/DL (<100); NON-HDL-C 124 MG/DL; POTASSIUM SERUM 4.5 MEQ/L (3.5-5.1); SODIUM LEVEL 140 MEQ/L (136-145); TOTAL PROTEIN 6.4 GM/DL (6.4-8.2); TRIGLYCERIDES LEVEL 82 MG/DL (<150)
[2020-08-10 00:07] LABS: PSA TOTAL 1.1 ng/mL (0.0-4.0)
== END ==
LOC: M LAB 06:19
PROVIDERS: ATTEND Family Medicine
DX: C85.90 Non-Hodgkin lymphoma, unspecified, unspecified site (principal); I10 Essential (primary) hypertension; R10.2 Pelvic and perineal pain

== ENCOUNTER → 2021-03-02 | Outpatient (CLI) | payer MEDICARE, OTHER | LOC: M RAD 06:24 | PROVIDERS: ATTEND Physician Assistant | DX: M79.645 Pain in left finger(s) (principal) ==

== ENCOUNTER → 2021-06-06 | Outpatient (CLI) | payer MEDICARE, OTHER ==
[2021-06-06 07:53] LABS: ALBUMIN 4.1 GM/DL (3.2-5.2); BILIRUBIN,DIRECT 0.3 MG/DL (0.0-0.2); CHOLESTEROL RISK RATIO 2.651 (<5); TOTAL PROTEIN 6.7 GM/DL (6.4-8.2)
== END ==
LOC: M LAB 06:22
PROVIDERS: ATTEND Physician Assistant
DX: Z13.220 Encounter for screening for lipoid disorders (principal); E78.00 Pure hypercholesterolemia, unspecified

== ENCOUNTER → 2021-09-12 | Outpatient (CLI) | payer MEDICARE, OTHER ==
[~2021-09-12] MED LIST changes: +CIDA500T2 PO; -CLAR5TAB PO; +COQ1200C PO; +DESL5TAB28 PO; +ROSU10TA6 PO; +VITA100093 PO; +ZYRTTAB8 PO
[2021-09-12 07:11] LABS: BASO % 0.7 % (0.0-1.0); EOS # 0.2 10^3/uL (0.0-0.5); EOS % 2.8 % (0.0-3.0); HEMATOCRIT 46.4 % (42.0-52.0); HEMOGLOBIN 16.5 g/dl (13.5-17.5); LYMPH # 1.3 10^3/uL (1.5-5.0); LYMPH % 22.5 % (24.0-44.0); MEAN CORPUSCULAR HEMOGLOBIN 30.9 pg (27.0-33.0); MEAN CORPUSCULAR HGB CONC 35.6 g/dl (32.0-36.5); MEAN CORPUSCULAR VOLUME 86.9 fl (80.0-96.0); MONO # 0.4 10^3/uL (0.0-0.8); MONO % 7.4 % (2.0-8.0); NEUTROPHILS # 3.8 10^3/uL (1.5-8.5); NEUTROPHILS % 66.1 % (36.0-66.0); PLATELET COUNT, AUTOMATED 136 10^3/uL (150-450); RED BLOOD COUNT 5.34 10^6/uL (4.30-6.10); WHITE BLOOD COUNT 5.8 10^3/uL (4.0-10.0)
[2021-09-12 07:47] LABS: BLOOD UREA NITROGEN 16 MG/DL (7-18); CREATININE FOR GFR 0.98 MG/DL (0.70-1.30); GLOMERULAR FILTRATION RATE > 60.0 (>49); GLUCOSE, FASTING 97 MG/DL (70-100); SODIUM LEVEL 142 MEQ/L (136-145)
[2021-09-12 07:48] LABS: ALBUMIN 3.8 GM/DL (3.2-5.2); ALT/SGPT 17 IU/L (0-32); BILIRUBIN,TOTAL 0.9 MG/DL (0.2-1.0); CALCIUM LEVEL 8.7 MG/DL (8.8-10.2); CARBON DIOXIDE LEVEL 26 mmol/L (20-29); CHLORIDE LEVEL 107 MEQ/L (98-107); CHOLESTEROL LEVEL 117 MG/DL (<200); CHOLESTEROL RISK RATIO 2.925 (<5); HDL CHOLESTEROL 40 MG/DL (>40); LDL CHOLESTEROL 63.6 MG/DL (<100); NON-HDL-C 77 MG/DL; POTASSIUM SERUM 4.3 MEQ/L (3.5-5.1); TOTAL PROTEIN 6.2 GM/DL (6.4-8.2); TRIGLYCERIDES LEVEL 67 MG/DL (<150)
[2021-09-12 07:49] LABS: FREE T4 0.94 NG/DL (0.76-1.46)
== END ==
LOC: M LAB 06:29
PROVIDERS: ATTEND Family Medicine
DX: I25.83 Coronary atherosclerosis due to lipid rich plaque (principal); I10 Essential (primary) hypertension

== ENCOUNTER → 2021-09-13 | Outpatient (CLI) | payer MEDICARE, OTHER | LOC: M LABSMTC 09:25 | PROVIDERS: ATTEND Anesthesiology | DX: Z01.812 Encounter for preprocedural laboratory examination (principal); Z20.822 Contact with and (suspected) exposure to COVID-19 ==

== ENCOUNTER 2021-09-18 09:49 | Day surgery (SDC) | payer MEDICARE, OTHER ==
[~2021-09-18] VITALS: Ht 167.6 cm; Wt 93.5 kg
[~2021-09-18 09:49] MED LIST changes: +NS 1,000 ML IV ONE
[2021-09-18] MEDS ORDERED: fentaNYL 100 MCG/2 ML INJECTION As Ordered ONE (11:21)
[2021-09-18] MEDS ORDERED: LIDOCAINE 2% 100MG/5ML SDV (FOR ANES.) As Ordered ONE (11:22)
[2021-09-18] MEDS ORDERED: propofoL 200 MG/20 ML VIAL As Ordered ONE (11:22)
[2021-09-18 11:50] VITALS: BP 166/98
== END 2021-09-18 12:05 | disposition home or self-care (01) ==
LOC: M OPP 09:49
PROVIDERS: ATTEND Internal Medicine Gastroenterology
DX: Z12.11 Encounter for screening for malignant neoplasm of colon (principal); Z86.010 Personal history of colon polyps; K64.0 First degree hemorrhoids; K22.89 Other specified disease of esophagus; K31.89 Other diseases of stomach and duodenum; I71.9 Aortic aneurysm of unspecified site, without rupture; I10 Essential (primary) hypertension; N40.0 Benign prostatic hyperplasia without lower urinary tract symptoms; Z85.72 Personal history of non-Hodgkin lymphomas; Z79.02 Long term (current) use of antithrombotics/antiplatelets; Z79.82 Long term (current) use of aspirin; Z79.899 Other long term (current) drug therapy; Z92.21 Personal history of antineoplastic chemotherapy; Z92.3 Personal history of irradiation
CPT/HCPCS: 43239; 88305; G0105; J3010

== ENCOUNTER → 2022-06-20 | Outpatient (CLI) | payer MEDICARE, OTHER ==
[~2022-06-20] MED LIST changes: +MONT-5 PO; -NS 1,000 ML IV ONE; -SING10TA32 PO
[2022-06-20 07:48] LABS: BASO % 0.5 % (0.0-1.0); EOS # 0.2 10^3/uL (0.0-0.5); EOS % 2.6 % (0.0-3.0); HEMATOCRIT 50.7 % (42.0-52.0); HEMOGLOBIN 17.3 g/dl (13.5-17.5); LYMPH # 1.5 10^3/uL (1.5-5.0); LYMPH % 26.2 % (24.0-44.0); MEAN CORPUSCULAR HEMOGLOBIN 30.4 pg (27.0-33.0); MEAN CORPUSCULAR HGB CONC 34.1 g/dl (32.0-36.5); MEAN CORPUSCULAR VOLUME 89.1 fl (80.0-96.0); MONO # 0.5 10^3/uL (0.0-0.8); MONO % 8.4 % (2.0-8.0); NEUTROPHILS # 3.6 10^3/uL (1.5-8.5); PLATELET COUNT, AUTOMATED 156 10^3/uL (150-450); RED BLOOD COUNT 5.69 10^6/uL (4.30-6.10); WHITE BLOOD COUNT 5.7 10^3/uL (4.0-10.0)
[2022-06-20 08:12] LABS: ALKALINE PHOSPHATASE 67 U/L (46-116); ALT/SGPT 25 U/L (7.0-40); AST/SGOT 28 U/L (<34); BILIRUBIN,TOTAL 1.1 MG/DL (0.3-1.2); BLOOD UREA NITROGEN 18 MG/DL (9-23); CALCIUM LEVEL 8.4 MG/DL (8.3-10.6); CARBON DIOXIDE LEVEL 32 MMOL/L (20-31); CHLORIDE LEVEL 104 MMOL/L (98-107); CHOLESTEROL LEVEL 118 MG/DL (<200); CHOLESTEROL RISK RATIO 3.04 (<5); CREATININE FOR GFR 0.98 MG/DL (0.70-1.30); GLOMERULAR FILTRATION RATE > 60.0 (>49); GLUCOSE, FASTING 89 MG/DL (74-106); HDL CHOLESTEROL 38.7 MG/DL (>40); LDL CHOLESTEROL 61.7 MG/DL (<100); NON-HDL-C 79.3 MG/DL; POTASSIUM SERUM 4.6 MMOL/L (3.5-5.1); SODIUM LEVEL 141 MMOL/L (136-145); TOTAL PROTEIN 6.3 G/DL (5.7-8.2); TRIGLYCERIDES LEVEL 88 MG/DL (<150)
[2022-06-20 08:13] LABS: HEMOGLOBIN A1c 5.1 % (4.0-6.0)
[2022-06-20 08:14] LABS: FREE T4 1.12 NG/DL (0.89-1.76)
[2022-06-20 08:17] LABS: THYROID STIMULATING HORMONE 1.499 uIU/ML (0.55-4.78)
== END ==
LOC: M LAB 06:30
PROVIDERS: ATTEND Physician Assistant
DX: I25.83 Coronary atherosclerosis due to lipid rich plaque (principal); I10 Essential (primary) hypertension; Z79.82 Long term (current) use of aspirin
CPT/HCPCS: 36415; 80053; 80061; 83036; 84439; 84443; 85025; G0103

== ENCOUNTER → 2022-09-11 | Outpatient (CLI) | payer MEDICARE, OTHER ==
[2022-09-11 07:42] LABS: BASO % 0.7 % (0.0-1.0); EOS # 0.2 10^3/uL (0.0-0.5); EOS % 3.3 % (0.0-3.0); HEMATOCRIT 47.8 % (42.0-52.0); HEMOGLOBIN 16.6 g/dl (13.5-17.5); LYMPH # 1.4 10^3/uL (1.5-5.0); LYMPH % 23.4 % (24.0-44.0); MEAN CORPUSCULAR HGB CONC 34.7 g/dl (32.0-36.5); MEAN CORPUSCULAR VOLUME 89.2 fl (80.0-96.0); MONO # 0.5 10^3/uL (0.0-0.8); NEUTROPHILS # 3.7 10^3/uL (1.5-8.5); NEUTROPHILS % 63.9 % (36.0-66.0); PLATELET COUNT, AUTOMATED 143 10^3/uL (150-450); RED BLOOD COUNT 5.36 10^6/uL (4.30-6.10); WHITE BLOOD COUNT 5.8 10^3/uL (4.0-10.0)
[2022-09-11 08:06] LABS: LIPASE 41 U/L (12-53)
[2022-09-11 08:07] LABS: LDH LACTATE DEHYDROGENASE 251 U/L (120-246)
[2022-09-11 08:08] LABS: ALKALINE PHOSPHATASE 66 U/L (46-116); ALT/SGPT 19 U/L (7.0-40); AST/SGOT 24 U/L (<34); BILIRUBIN,DIRECT 0.5 MG/DL (<0.4); BILIRUBIN,TOTAL 1.4 MG/DL (0.3-1.2); BLOOD UREA NITROGEN 15 MG/DL (9-23); CARBON DIOXIDE LEVEL 30 MMOL/L (20-31); CHLORIDE LEVEL 104 MMOL/L (98-107); CREATININE FOR GFR 0.87 MG/DL (0.70-1.30); GLOMERULAR FILTRATION RATE > 60.0 (>49); GLUCOSE, FASTING 94 MG/DL (74-106); POTASSIUM SERUM 4.9 MMOL/L (3.5-5.1); SODIUM LEVEL 141 MMOL/L (136-145); TOTAL PROTEIN 6.4 G/DL (5.7-8.2)
== END ==
LOC: M LAB 06:36
PROVIDERS: ATTEND Physician Assistant
DX: R10.817 Generalized abdominal tenderness (principal); Z12.5 Encounter for screening for malignant neoplasm of prostate
CPT/HCPCS: 36415; 80048; 80076; 83615; 83690; 85025; G0103

== ENCOUNTER → 2022-09-13 | Outpatient (CLI) | payer MEDICARE, OTHER ==
[~2022-09-13] MED LIST changes: +GASTROGRAFIN SOLUTION 30ML As Ordered ONE; +ISOVUE-370 76% 100ML VIAL As Ordered ONE
== END ==
LOC: M RAD 08:12
PROVIDERS: ATTEND Physician Assistant
DX: R10.84 Generalized abdominal pain (principal)
CPT/HCPCS: 74177; Q9963; Q9967

== ENCOUNTER → 2023-05-13 | Outpatient (CLI) | payer MEDICARE, OTHER ==
[~2023-05-13] MED LIST changes: -GASTROGRAFIN SOLUTION 30ML As Ordered ONE; +IRBE300T25 PO; -IRBE300T7 PO; -ISOVUE-370 76% 100ML VIAL As Ordered ONE
== END ==
LOC: M EKG 08:42
PROVIDERS: ATTEND Orthopaedic Surgery
DX: Z01.818 Encounter for other preprocedural examination (principal)

== ENCOUNTER → 2023-08-29 | Outpatient (CLI) | payer MEDICARE, OTHER ==
[~2023-08-29] MED LIST changes: +ONDA-282 PO; +ONDA-284 PO; -ONDA4TAB6 PO; -ONDA8TAB8 PO; -ROSU10TA6 PO; +ROSU10TA61 PO
== END ==
LOC: M PLAIMG 07:09
PROVIDERS: ATTEND Orthopaedic Surgery
DX: Z47.89 Encounter for other orthopedic aftercare (principal); M54.30 Sciatica, unspecified side

== ENCOUNTER → 2023-09-26 | Outpatient (CLI) | payer MEDICARE, OTHER ==
[2023-09-26 07:11] LABS: BASO % 0.6 % (0.0-1.0); EOS # 0.1 10^3/uL (0.0-0.5); EOS % 2.5 % (0.0-3.0); HEMATOCRIT 46.3 % (42.0-52.0); HEMOGLOBIN 15.6 g/dl (13.5-17.5); LYMPH # 1.3 10^3/uL (1.5-5.0); LYMPH % 24.7 % (24.0-44.0); MEAN CORPUSCULAR HEMOGLOBIN 30.7 pg (27.0-33.0); MEAN CORPUSCULAR HGB CONC 33.7 g/dl (32.0-36.5); MEAN CORPUSCULAR VOLUME 91.1 fl (80.0-96.0); MONO # 0.4 10^3/uL (0.0-0.8); NEUTROPHILS # 3.4 10^3/uL (1.5-8.5); NEUTROPHILS % 63.8 % (36.0-66.0); PLATELET COUNT, AUTOMATED 138 10^3/uL (150-450); RED BLOOD COUNT 5.08 10^6/uL (4.30-6.10); WHITE BLOOD COUNT 5.3 10^3/uL (4.0-10.0)
[2023-09-26 07:42] LABS: ALBUMIN 3.7 G/DL (3.2-5.2); ALKALINE PHOSPHATASE 66 U/L (46-116); ALT/SGPT 21 U/L (7.0-40); AST/SGOT 25 U/L (<34); BILIRUBIN,TOTAL 1.2 MG/DL (0.3-1.2); BLOOD UREA NITROGEN 21 MG/DL (9-23); CALCIUM LEVEL 8.7 MG/DL (8.3-10.6); CARBON DIOXIDE LEVEL 32 MMOL/L (20-31); CHLORIDE LEVEL 107 MMOL/L (98-107); CHOLESTEROL LEVEL 119 MG/DL (<200); CHOLESTEROL RISK RATIO 3.09 (<5); GLOMERULAR FILTRATION RATE > 60.0 (>49); GLUCOSE, FASTING 92 MG/DL (74-106); HDL CHOLESTEROL 38.5 MG/DL (>40); LDL CHOLESTEROL 68.3 MG/DL (<100); NON-HDL-C 80.5 MG/DL; POTASSIUM SERUM 4.2 MMOL/L (3.5-5.1); SODIUM LEVEL 142 MMOL/L (136-145); TOTAL PROTEIN 6.3 G/DL (5.7-8.2); TRIGLYCERIDES LEVEL 61 MG/DL (<150)
[2023-09-26 07:45] LABS: FREE T4 1.14 NG/DL (0.89-1.76)
== END ==
LOC: M LAB 06:36
PROVIDERS: ATTEND Family Medicine
DX: I10 Essential (primary) hypertension (principal)

== ENCOUNTER → 2024-08-19 | Outpatient (CLI) | payer MEDICARE, OTHER ==
[~2024-08-19] MED LIST changes: -DESL5TAB28 PO; +DESL5TAB30 PO; +ISOVUE-370 76% 100 ML VIAL ONE
== END ==
LOC: M PLAIMG 10:03
PROVIDERS: ATTEND Physician Assistant
DX: R06.00 Dyspnea, unspecified (principal); K76.89 Other specified diseases of liver
CPT/HCPCS: 71260; Q9967

== ENCOUNTER 2024-10-05 06:41 | Day surgery (SDC) | payer MEDICARE, OTHER ==
[~2024-10-05] VITALS: Ht 165.1 cm; Wt 92.4 kg
[~2024-10-05 06:41] MED LIST changes: +CYCLOPENTOLATE 1% OPHTH SOLN 2 ML BTL OD SCH; +FLURBIPROFEN 0.03% OPHTH SOLN 2.5 ML OD SCH; +GINK120C3 PO; -ISOVUE-370 76% 100 ML VIAL ONE; +PHENYLEPHRINE 10% OPHTH SOL 5ML OD SCH; +TETRACAINE 0.5% OPHTH SOLN 4ML OD SCH; +ZINC220CA PO
[2024-10-05] MEDS ORDERED: LR 1,000 ML IV SCH (07:00)
[2024-10-05] MEDS ORDERED: MIDAZOLAM INJ 2 MG/2 ML VIAL As Ordered ONE (07:12)
[2024-10-05] MEDS: CEFUROXIME 1 MG/0.1 ML INTRACAMERAL INJ As Ordered ONE (08:39)
[2024-10-05] MEDS: LIDOCAINE 1% SDV 5 ML VIAL As Ordered ONE (08:39)
[2024-10-05 09:00] VITALS: BP 112/75; TEMP 97.1; O2SAT 96
== END 2024-10-05 09:22 | disposition home or self-care (01) ==
LOC: M SDC 06:41
PROVIDERS: ATTEND Ophthalmology
DX: H25.11 Age-related nuclear cataract, right eye (principal); I10 Essential (primary) hypertension; E78.00 Pure hypercholesterolemia, unspecified; G47.30 Sleep apnea, unspecified; N40.0 Benign prostatic hyperplasia without lower urinary tract symptoms; Z92.21 Personal history of antineoplastic chemotherapy; C82.9A Follicular lymphoma, unspecified, in remission; Z79.899 Other long term (current) drug therapy; Z79.82 Long term (current) use of aspirin; Z88.8 Allergy status to other drugs, medicaments and biological substances
CPT/HCPCS: 66984; J0697; J2250; J3010; V2787

== ENCOUNTER 2024-10-12 08:51 | Day surgery (SDC) | payer MEDICARE, OTHER ==
[~2024-10-12] VITALS: Ht 165.1 cm; Wt 91.3 kg
[~2024-10-12 08:51] MED LIST changes: -CYCLOPENTOLATE 1% OPHTH SOLN 2 ML BTL OD SCH; +CYCLOPENTOLATE 1% OPHTH SOLN 2 ML BTL OS SCH; -FLURBIPROFEN 0.03% OPHTH SOLN 2.5 ML OD SCH; +FLURBIPROFEN 0.03% OPHTH SOLN 2.5 ML OS SCH; +LR 1,000 ML IV SCH; -PHENYLEPHRINE 10% OPHTH SOL 5ML OD SCH; +PHENYLEPHRINE 10% OPHTH SOL 5ML OS SCH; -TETRACAINE 0.5% OPHTH SOLN 4ML OD SCH; +TETRACAINE 0.5% OPHTH SOLN 4ML OS SCH
[2024-10-12] MEDS ORDERED: MIDAZOLAM INJ 2 MG/2 ML VIAL As Ordered ONE (10:17)
[2024-10-12] MEDS: LIDOCAINE 1% SDV 5 ML VIAL As Ordered ONE (11:01)
[2024-10-12] MEDS: CEFUROXIME 1 MG/0.1 ML INTRACAMERAL INJ As Ordered ONE (11:01)
[2024-10-12 11:28] VITALS: BP 119/68; TEMP 97.2; O2SAT 96
== END 2024-10-12 11:40 | disposition home or self-care (01) ==
LOC: M SDC 08:51
PROVIDERS: ATTEND Ophthalmology
DX: H25.812 Combined forms of age-related cataract, left eye (principal); G47.30 Sleep apnea, unspecified; J30.2 Other seasonal allergic rhinitis; I35.9 Nonrheumatic aortic valve disorder, unspecified; Z79.82 Long term (current) use of aspirin; Z79.899 Other long term (current) drug therapy; Z88.8 Allergy status to other drugs, medicaments and biological substances; Z91.09 Other allergy status, other than to drugs and biological substances
CPT/HCPCS: 66984; J0697; J2250; J3010; V2788

== ENCOUNTER → 2024-12-17 | Outpatient (CLI) | payer MEDICARE, OTHER ==
[~2024-12-17] MED LIST changes: -CYCLOPENTOLATE 1% OPHTH SOLN 2 ML BTL OS SCH; -FLURBIPROFEN 0.03% OPHTH SOLN 2.5 ML OS SCH; -LR 1,000 ML IV SCH; -PHENYLEPHRINE 10% OPHTH SOL 5ML OS SCH; -PROC5TAB57 PO; +PROC5TAB81 PO; -ROSU10TA61 PO; +ROSU10TA90 PO; -TETRACAINE 0.5% OPHTH SOLN 4ML OS SCH
== END ==
LOC: M CARPUL 09:13
PROVIDERS: ATTEND Physician Assistant
DX: R01.1 Cardiac murmur, unspecified (principal); I08.0 Rheumatic disorders of both mitral and aortic valves; I37.1 Nonrheumatic pulmonary valve insufficiency; I77.810 Thoracic aortic ectasia

== ENCOUNTER → 2025-01-04 | Outpatient (CLI) | payer MEDICARE, OTHER ==
[2025-01-04 07:58] LABS: BASO # 0.0 10^3/uL (0.0-0.2); BASO % 0.6 % (0.0-1.0); EOS # 0.2 10^3/uL (0.0-0.5); EOS % 4.3 % (0.0-3.0); LYMPH # 1.5 10^3/uL (1.5-5.0); LYMPH % 27.9 % (24.0-44.0); MONO # 0.4 10^3/uL (0.0-0.8); MONO % 7.9 % (2.0-8.0); NEUTROPHILS # 3.2 10^3/uL (1.5-8.5); NEUTROPHILS % 58.9 % (36.0-66.0); PLATELET COUNT, AUTOMATED 136 10^3/uL (150-450)
[2025-01-04 08:26] LABS: ALT/SGPT 25.0 U/L (7.0-40); AST/SGOT 28.0 U/L (<34); CALCIUM LEVEL 8.7 MG/DL (8.3-10.6); CARBON DIOXIDE LEVEL 32.0 MMOL/L (20-31); CHLORIDE LEVEL 103.0 MMOL/L (98-107); CREATININE FOR GFR 0.96 MG/DL (0.70-1.30); GLOMERULAR FILTRATION RATE 85.6 (>49); POTASSIUM SERUM 4.8 MMOL/L (3.5-5.1); SODIUM LEVEL 143.0 MMOL/L (136-145)
[2025-01-04 08:39] LABS: APPEARANCE, URINE CLEAR (CLEAR); BACTERIA, URINE AUTO NEGATIVE (NEGATIVE); BILIRUBIN, URINE AUTO NEGATIVE (NEGATIVE); BLOOD, URINE BLOOD NEGATIVE (NEGATIVE); GLUCOSE, URINE (UA) AUTO NEGATIVE (NEGATIVE); KETONE, URINE AUTO NEGATIVE (NEGATIVE); LEUKOCYTE ESTERASE, URINE AUTO NEGATIVE (NEGATIVE); MUCUS, URINE SMALL (NEGATIVE); NITRITE, URINE AUTO NEGATIVE (NEGATIVE); PROTEIN, URINE AUTO NEGATIVE (NEGATIVE); RBC, URINE AUTO 1 /HPF (0-3); SPECIFIC GRAVITY URINE AUTO 1.024 (1.002-1.035); SQUAMOUS EPITHELIAL CELL UR AU 0 /HPF (0-6); UROBILINOGEN, URINE AUTO 2.0 mg/dL (0.0-2.0); WBC, URINE AUTO 1 /HPF (0-3)
== END ==
LOC: M LAB 06:31
PROVIDERS: ATTEND Orthopaedic Surgery
DX: M75.102 Unspecified rotator cuff tear or rupture of left shoulder, not specified as traumatic (principal)